=== PATIENT | male | born 1955 | race Caucasian/White ===

== ENCOUNTER 2016-10-27 07:05 | Inpatient (IN) | payer MEDICARE, OTHER ==
[2016-10-27] VITALS (46 sets, daily range): BP systolic 77–118; BP diastolic 47–70; PULSE 52–75; RESP 11–29; Ht 165.1 cm; Wt 62.1 kg
[~2016-10-27] VITALS: Ht 165.1 cm; Wt 62.1 kg
[~2016-10-27 07:05] MED LIST: ETOMIDATE 20 MG INJ ONE
[2016-10-27] MEDS ORDERED: SOD CHLORIDE 0.9% 500 ML IV STA (07:11)
[2016-10-27] MEDS ORDERED: PROPOFOL 100 ML IV STA (07:16)
[2016-10-27] MEDS ORDERED: ETOMIDATE 20 MG INJ IV STA (07:16)
[2016-10-27] MEDS ORDERED: ROCURONIUM 50 MG INJ IV STA (07:16)
--- NOTE | 2016-10-27 07:50 | ERA ---
ER Documentation Chief Complaint Date/Time DATE: 10/27/16 TIME: 07:46 Chief Complaint ALOC, UNRESPONSIVE TO PAIN FROM HOME HX LIVER FAILURE HPI 61-year-old male history of known cirrhosis, who gets most of his care at [facility] and is on the transplant list who presents with altered mental status. It appears he had a paracentesis yesterday, uncomplicated. He was normal around 10 PM yesterday evening. An design center consultant has been used with a conversation with his . She states that she found him this morning altered and obtunded. Upon arrival the patient is obtunded with a GCS of 6. The patient was intubated for airway protection. The patient's denies any recent fevers or illness, no falls or head trauma. Remainder of HPI is limited. ROS Obtunded patient Medications Home Meds Reported Medications Insulin Glargine* (Lantus*) 100 Unit/Ml Soln, 12 UNIT SC DAILY, #1 VIAL 10/27/16 Insulin Aspart* (Novolog Insulin Pen*) 100 Unit/Ml Soln, 4 UNIT SC AC BREAKFAST , EA 10/27/16 Midodrine* (Midodrine*) 10 Mg Tablet, 10 MG PO TID, TAB 10/27/16 Omeprazole* (Omeprazole*) 40 Mg Capsule.dr, 40 MG PO DAILY, #30 CAP 10/27/16 Ondansetron Hcl* (Zofran*) 4 Mg Tab, 4 MG PO Q6H Y for NAUSEA AND OR VOMITING, TAB 10/27/16 Rifaximin* (Xifaxan*) 550 Mg Tablet, 550 MG PO BID, TAB 10/27/16 Lactulose* (Lactulose*) 20 Gm/30 Ml Solution, 20 GM PO BID, ML 10/27/16 Tamsulosin Hcl* (Tamsulosin Hcl*) 0.4 Mg Cap.er.24h, 0.4 MG PO HS, CAP 10/27/16 Spironolactone* (Aldactone*) 100 Mg Tablet, 150 MG PO DAILY, #60 TAB 10/27/16 Furosemide* (Furosemide*) 40 Mg Tablet, 40 MG PO BID, TAB 10/27/16 Docusate Sodium* (Colace*) 100 Mg Capsule, 100 MG PO BID, #60 CAP 10/27/16 Allergies Allergies: Coded Allergies: morphine (Verified Allergy, Unknown, 10/27/16) PMhx/Soc History of cirrhosis Physical Exam Vitals Vital Signs Date Time Temp Pulse Resp B/P Pulse Ox O2 Delivery O2 Flow Rate FiO2 10/27/16 09:44 85 18 133/97 Mechanical Ventilator 10/27/16 08:55 73 18 117/63 Mechanical Ventilator 10/27/16 07:48 76 18 148/86 Mechanical Ventilator 10/27/16 07:38 97.5 81 15 177/89 100 Physical Exam General: Obtunded, GCS of 6, minimally responsive Head: Normocephalic, atraumatic. Eyes: Pupils minimally reactive, EOM intact ENT: Moist mucous membranes Neck: Supple, no lymphadenopathy Respiratory: Lungs clear bilaterally, no distress Cardiovascular: RRR, no murmurs, rubs, or gallops Abdominal: Soft, protuberant with fluid wave, lower abdominal wall ventral hernia that is easily reducible, no peritonitis, no pulsatile mass : Deferred MSK: No edema, no unilateral swelling, limited movement of extremities Neurologic: Obtunded, GCS of 6, minimally responsive Skin: No rash Psych: Unable to assess Result Diagram: 10/27/16 0735 10/27/16 0735 Results 24 hrs Laboratory Tests Test 10/27/16 07:11 10/27/16 07:35 Blood Gas Specimen Source Blood arterial Arterial Blood Date Drawn 10/27/2016 8:40:15 AM Arterial Blood pH (Temp corrected) 7.521 Arterial Blood pCO2 (Temp correct) 23.8mmhg Arterial Blood pO2 (Temp corrected) 409.7mmHG Arterial Blood HCO3 19.0mmol/L Arterial Blood Base Excess -2.6mmol/L Arterial Blood Oxygen Saturation 99.4mmHG Clint Test ACCEPTAB Arterial Blood Gas Puncture Site Left Radial Arterial Blood Carboxyhemoglobin 0.3% Arterial Blood Methemoglobin 0.3% Blood Gas A-a O2 Differential 279.5mmHg Oxyhemoglobin Percent 98.8% Total Hemoglobin 10.5g/dl Blood Gas Temperature 37.0C Blood Gas Respiration Rate 16.0 Blood Gas Actual Respiration Rate 20 Blood Gas Modality VENT - AC FiO2 100.0% Blood Gas Tidal Volume 450.0mL Blood Gas Low PEEP Setting 5.0cmH2O Blood Gas Notified Whom RT Blood Gas Notified Time 10/27/2016 8:49:57 AM White Blood Count 3.710^3/ul Red Blood Count 4.3010^6/ul Hemoglobin 10.6g/dl Hematocrit 33.1% Mean Corpuscular Volume 77.0fl Mean Corpuscular Hemoglobin 24.7pg Mean Corpuscular Hemoglobin Concent 32.0g/dl Red Cell Distribution Width 25.3% Platelet Count 7210^3/UL Mean Platelet Volume fl Neutrophils % 85.5% Lymphocytes % 7.0% Monocytes % 5.9% Eosinophils % 0.3% Basophils % 0.5% Nucleated Red Blood Cells % 0.0/100WBC Neutrophils # 3.210^3/ul Lymphocytes # 0.310^3/ul Monocytes # 0.210^3/ul Eosinophils # 0.010^3/ul Basophils # 0.010^3/ul Nucleated Red Blood Cells # 0.010^3/ul Prothrombin Time 18.0Sec Prothrombin Time Ratio 1.4 INR International Normalized Ratio 1.48 Activated Partial Thromboplast Time 32.3Sec Sodium Level 134mmol/L Potassium Level 4.6mmol/L Chloride Level 103mmol/L Carbon Dioxide Level 23mmol/L Anion Gap 13 Blood Urea Nitrogen 20mg/dl Creatinine 1.27mg/dl Glucose Level 285mg/dl Lactic Acid Level 3.8mmol/L Calcium Level 8.3mg/dl Total Bilirubin 0.9mg/dl Direct Bilirubin 0.00mg/dl Indirect Bilirubin 0.9mg/dl Aspartate Amino Transf (AST/SGOT) 33IU/L Alanine Aminotransferase (ALT/SGPT) 39IU/L Alkaline Phosphatase 212IU/L Ammonia 181umol/l Troponin I < 0.012ng/ml Total Protein 7.8g/dl Albumin 3.6g/dl Globulin 4.20g/dl Albumin/Globulin Ratio 0.85 Lipase 202U/L Free Thyroxine Index 2.53ug/ml Thyroxine (T4) 5.2ug/dl Triiodothyronine (T3) Uptake 48.6% Ethyl Alcohol Level < 10.0mg/dl Current Medications Medications (Trade) Dose Ordered Sig/Lisa Route PRN Reason Start Time Stop Time Status Last Admin Dose Admin Sodium Chloride (NS) 500 ml @ 500 mls/hr Q1H STAT IV 10/27/16 07:11 10/27/16 08:10 DC 10/27/16 07:28 Rocuronium [place] (Zemuron) 100 mg ONCE STAT IV 10/27/16 07:16 10/27/16 07:17 DC Etomidate 20 mg 20 mg ONCE STAT IV 10/27/16 07:16 10/27/16 07:17 DC Propofol (Diprivan) 100 ml @ 0 mls/hr ONCE STAT IV 10/27/16 07:16 10/27/16 07:17 DC 10/27/16 07:16 Lactulose (Enulose) 20 gm ONCE ONCE NGT 10/27/16 09:30 10/27/16 09:31 DC 10/27/16 09:35 Sodium Chloride 2170 ml 2,170 ml BOLUS OVER 2 HOURS STAT IV* 10/27/16 09:05 10/27/16 09:09 DC 10/27/16 09:32 Cefepime HCl 50 ml @ 100 mls/hr ONCE STAT IVPB 10/27/16 09:05 10/27/16 09:34 DC 10/27/16 09:35 Vancomycin HCl (Vancocin) 250 ml @ 125 mls/hr ONCE ONCE IVPB 10/27/16 10:00 10/27/16 11:59 Famotidine (Pepcid) 20 mg Q12 PO 10/27/16 11:00 Heparin Sodium (Porcine) (Heparin (5000 Units/0.5 ml)) 5,000 unit Q8 SC 10/27/16 11:00 Docusate Sodium (Colace) 100 mg BID PO 10/27/16 21:00 UNV Insulin Aspart (Novolog Insulin Pen) 4 unit AC BREAKFAST SC 10/28/16 07:00 UNV Lactulose (Enulose) 20 gm BID PO 10/27/16 21:00 10/27/16 21:00 DC Midodrine (Proamatine) 10 mg TID PO 10/27/16 13:00 UNV Ondansetron HCl (Zofran Tab) 4 mg Q6H PRN PO NAUSEA AND/OR VOMITING 10/27/16 10:00 UNV Rifaximin (Xifaxan) 550 mg BID PO 10/27/16 21:00 UNV Tamsulosin HCl (Flomax) 0.4 mg HS PO 10/27/16 21:00 UNV Lactulose (Enulose) 20 gm QID NGT 10/27/16 13:00 UNV Procedures/MDM EKG, MONITORS, & DIAGNOSTIC IMAGING: Chest x-ray: radiology report IMPRESSION: New endotracheal tube within the right mainstem bronchus. Retraction of 4 cm is recommended. Left lower lobe infiltrate and left pleural effusion. A call report was made and the findings discussed with Ned Galeana at 10/27/2016 8:42:58 AM. EKG: I reviewed and interpreted a 12-lead EKG. Rhythm: Normal sinus rhythm Ectopy: None Intervals: No abnormalities ST segments: No elevations or depressions T waves: No contiguous inversions CT brain: IMPRESSION: 1. No acute intracranial pathology identified. 2. Mild volume loss, with mild to moderate chronic small vessel ischemic changes. CT abdomen and pelvis: IMPRESSION: 1. Right mainstem bronchus intubation. Collapse of the visualized left lower lung. 2. Morphologic changes of cirrhosis. 3. Stigmata of portal hypertension with evidence of moderate splenomegaly, moderate abdominopelvic ascites, large caliber perisplenic, small-caliber upper abdominal varices and recanalized paraumbilical vein. 4. Fluid containing bilateral inguinal and periumbilical hernias. 5. Large right-sided hydrocele. 6. Mesenteric edema, mildly enlarged mesenteric and retroperitoneal lymph nodes. 7. Aortoiliac atherosclerosis. RPTAT: BB PROCEDURES: Intubation Note: Indication: Airway protection Consent: This was an emergent situation, implied consent was observed, did have a conversation with the patient's prior to intubation she states that he would want aggressive care RSI Medications: Etomidate 20 mg, Rocuronium 100 mg Tube size: 8 Secured at: 22 Procedure: Endotracheal intubation was performed. The patient was preoxygenated with supplemental oxygen, the room was set up with emergent airway equipment including [id number], suction, adjunct airways. Direct visualization of the cords was performed with direct laryngoscopy using a 4.0 Mac blade, insertion of the endotracheal tube through the cords was visualized by the mingler operator. Bilateral breath sounds were auscultated, color change was observed. The tube was then secured in a postintubation chest x-ray was ordered. The patient tolerated the procedure well there were no complications. LAB INTERPRETATION: Pancytopenia is noted, hyperglycemia without diabetic ketoacidosis, nonspecific lactic acidosis of 3.8, elevated ammonia of 181, negative troponin MEDICAL DECISION MAKING: The patient presents to the emergency room with acute altered mental status likely in the setting of hepatic encephalopathy. The patient has end-stage liver disease with stigmata of severe cirrhosis. He had a recent paracentesis yesterday but has a benign abdominal exam. I do not believe this is consistent with spontaneous bacterial peritonitis. Upon arrival the patient was obtunded with a GCS of 6 at best, he is oxygenating but I do not believe he is protecting his airway. Given that the patient will likely require multiple doses of lactulose I recommended airway protection and the patient's has agreed. The patient was intubated as documented above. Post sedation with propofol. Broad workup including blood cultures, lactic acid, CT imaging of the head and abdomen and pelvis were initiated. Blood cultures taken. No source of infection at this time, holding on antibiotics unless clinical scenario changes. NG tube to be placed for lactulose administration. ER COURSE: The patient's diagnostic imaging shows the endotracheal tube is in the right mainstem. Speaking with respiratory therapy it was noted that the patient's endotracheal tube slipped during imaging and the tube was deeper than 22 during initial intubation. The tube was retracted to 22 cm and bilateral breath sounds were auscultated. I confirmed this at bedside. The patient continues to be hemodynamically stable. His lactic acid is 3.8. No other Sirs criteria other than the low WBC count. No focal source and very low clinical concern for spontaneous bacterial peritonitis. The chest x-ray is concerning for possible pneumonia therefore empiric antibiotics were ordered. 30 cc/kg saline was provided. At this point given that the patient has hepatic encephalopathy with no fever I do not believe this is consistent with SBP and do not feel the patient requires an emergent diagnostic paracentesis. Empiric antibiotics would be appropriate and will cover SBP at this point. Given that the patient is hemodynamically stable with no evidence of severe sepsis or septic shock given that he does not meet criteria I do not believe he requires a central line. I will monitor the patient's blood pressure as well as lactic acid. He will be placed in the intensive care unit. I kept the patient and/or family informed of laboratory and diagnostic imaging results throughout the emergency room course. The family was updated multiple times, poor understanding and comprehension is noted. DISPOSITION PLAN: ICU admission for management of hepatic encephalopathy, respiratory failure CONSULTATION: Accepting care team and consultations: I discussed the current laboratory data, diagnostic imaging and emergency care provided. Admitting team: Dr. Gaines Admitting team indication: Insurance directed In the emergency department the patient does not meet SIRS criteria. This is not consistent with sepsis or severe sepsis. Fluid reassessment not performed because of this. Critical Care Note: Total time: 45 minutes Indication/Organ System Threat: Hepatic encephalopathy and altered mental status requiring intubation I spent the above amount of critical care time with the patient, not including billable procedures. This included chart review, consultations, repeat bedside evaluations, and titration of appropriate medications to prevent cardiopulmonary or respiratory collapse. Departure Diagnosis: Primary Impression: Pancytopenia Additional Impressions: Acute hepatic encephalopathy Acute respiratory failure Qualified Code: J96.00 - Acute respiratory failure, unspecified whether with hypoxia or hypercapnia Cirrhosis Qualified Code: K74.60 - Cirrhosis of liver with ascites, unspecified hepatic cirrhosis type Pneumonia Qualified Code: J18.9 - Pneumonia of left lung due to infectious organism, unspecified part of lung Lactic acidosis Condition: Critical NED RODRIGUEZ MD Oct 27, 2016 07:50
[2016-10-27 08:06] LABS: ADD SCAN DIFF NO
[2016-10-27 08:19] LABS: ABNORMAL IP MESSAGE 1; BASOPHILS % 0.5 % (0.0-2.0); EOSINOPHILS % 0.3 % (0.0-7.0); HEMATOCRIT 33.1 % (42.0-52.0); HEMOGLOBIN 10.6 g/dl (14.0-18.0); LYMPHOCYTES # 0.3 10^3/ul (0.8-2.9); MEAN CORPUSCULAR HEMOGLOBIN 24.7 pg (29.0-33.0); MONOCYTE # 0.2 10^3/ul (0.3-0.9); MONOCYTES % 5.9 % (0.0-11.0); NEUTROPHIL # 3.2 10^3/ul (1.6-7.5); NEUTROPHILS % 85.5 % (39.0-77.0); PLATELET COUNT 72 10^3/UL (140-415); RED CELL DISTRIBUTION WIDTH 25.3 % (11.5-14.5); WHITE BLOOD COUNT 3.7 10^3/ul (4.8-10.8)
--- NOTE | 2016-10-27 08:28 | RADRPT ---
PROCEDURE: CT brain without contrast CLINICAL INDICATION: Altered mental status TECHNIQUE: CT of the brain without contrast performed on a multidetector CT scanner, with multiplan ar reformats. One or more of the following dose reduction techniques were used: Automated exposure control, adjustment in mA and / or kV according to patient size, use of iterative reconstructive serge hnique. CTDIvol = 44 mGy; DLP = 630 mGy-cm. COMPARISON: None available FINDINGS: No acute intracranial hemorrhage is identified. No extra-axial fluid collection is seen. There is no mass effect. No midline shift is identified. Ventricles and sulci are mildly enlarged compatible with volume loss. There are mild to moderate areas of hypodensity in the periventricular - deep white matter which are nonspecific but suggestive of chronic small vessel ischemic changes. Barillas-white differentiation is preserved. Atherosclerotic calcifications of the internal carotid arteries are noted. Osseous structures are unremarkable. Mastoid air cells and imaged paranasal sinuses grossly clear. IMPRESSION: 1. No acute intracranial pathology identified. 2. Mild volume loss, with mild to moderate chronic small vessel ischemic changes. RPTAT: VV .Ivan Anna MD, MD Date Time Electronically viewed and signed by .Ivan Anna MD, on 10/27/2016 08:28 .O/
[2016-10-27 08:32] LABS: LACTIC ACID 3.8 mmol/L (0.5-2.2)
[2016-10-27 08:33] LABS: INR 1.48; PT RATIO 1.4
[2016-10-27 08:34] LABS: PARTIAL THROMBOPLASTIN TIME 32.3 Sec (25.0-35.0)
--- NOTE | 2016-10-27 08:38 | RADRPT ---
PROCEDURE: CT Abdomen and Pelvis without contrast. CLINICAL INDICATION: Altered mental status. Abdominal distension. TECHNIQUE: CT scan of the abdomen and pelvis without contrast was performed on a multidetector hig h-resolution CT scanner. The patient was scanned without intravenous contrast. Coronal and sagittal reformatted images were obtained from the axial source images. Images were reviewed on a high-resol [employer] PACS workstation. The total exam CTDI equals 12.49 mGy and the total exam DLP equals 923.12 mG y-cm. One or more of the following dose reduction techniques were used: Automated exposure control. Adjustment of the mA and/or kV according to patient size. Use of iterative reconstruction technique. COMPARISON: Chest x-ray 10/27/2016 FINDINGS: CT abdomen: The lung bases are remarkable for collapse of the visualized left lung. Endotracheal tube is identif ied in the right main bronchus. The heart size is normal, without pericardial thickening or effusio n. There is a small shrunken liver with surface nodularity in keeping with cirrhosis. There is moderat e splenomegaly. There is moderate abdominopelvic ascites. There are large caliber perisplenic varic es. Small caliber upper abdominal varices and recanalized paraumbilical veins are noted. The stomach is partially collapsed, but is grossly unremarkable. There is a small hiatal hernia. NG tube is in place with tip coiling in the stomach with tip projecting towards the fundus. The pancrea s as visualized is normal. The gallbladder is not identified. There is no evidence for biliary dila tation. The adrenal glands are symmetric and normal. The kidneys are symmetrically unremarkable as well. No renal calculus or obstructive uropathy or mass lesion is seen. The aorta is of normal caliber. Aortic vascular calcifications are present. There is no retroperit gutierrez lymphadenopathy. The terrell hepatis region is clear. There is fatty infiltration in the root o f the mesentery mesenteric edema. Multiple mildly enlarged retroperitoneal and mesenteric lymph nod es are present. There is periumbilical hernia containing fluid. CT pelvis: There are fluid and fat containing bilateral inguinal hernia. There is a large right-sided hydrocele . The small bowel loops situated within the pelvis are unremarkable. The pelvic organs are normal. The pelvic sidewalls and inguinal regions are clear. Scattered diverticula are seen in the left c olon without evidence of acute diverticulitis. No mass, lymphadenopathy, or free fluid is seen. No acute inflammation is seen. The surrounding osseous structures are remarkable for degenerative spon dylosis of the spine. No osteolytic or osteoblastic lesion is detected. There is grade 1 anterolist hesis of L5 on S1 related to bilateral pars defects. IMPRESSION: 1. Right mainstem bronchus intubation. Collapse of the visualized left lower lung. 2. Morphologic changes of cirrhosis. 3. Stigmata of portal hypertension with evidence of moderate splenomegaly, moderate abdominopelvic ascites, large caliber perisplenic, small-caliber upper abdominal varices and recanalized paraumbili arturo vein. 4. Fluid containing bilateral inguinal and periumbilical hernias. 5. Large right-sided hydrocele. 6. Mesenteric edema, mildly enlarged mesenteric and retroperitoneal lymph nodes. 7. Aortoiliac atherosclerosis. RPTAT: BB .Tamie Burroughs MD, MD Date Time Electronically viewed and signed by .Tamie Burroughs MD, on 10/27/2016 08:38 .O/
[2016-10-27 08:40] LABS: ALANINE AMINOTRANSFERASE 39 IU/L (13-69); ALBUMIN 3.6 g/dl (3.3-4.9); ALBUMIN/GLOBULIN RATIO 0.85; ALKALINE PHOSPHATASE 212 IU/L (42-121); ANION GAP 13 (8-16); ASPARTATE AMINO TRANSFERASE 33 IU/L (15-46); BILIRUBIN,INDIRECT 0.9 mg/dl (0-1.1); BILIRUBIN,TOTAL 0.9 mg/dl (0.2-1.3); BLOOD UREA NITROGEN 20 mg/dl (7-20); CALCIUM 8.3 mg/dl (8.4-10.2); CARBON DIOXIDE 23 mmol/L (21-31); CHLORIDE 103 mmol/L (97-110); CREATININE 1.27 mg/dl (0.61-1.24); GLUCOSE 285 mg/dl (70-220); POTASSIUM 4.6 mmol/L (3.5-5.1); SODIUM 134 mmol/L (135-144); TOTAL PROTEIN 7.8 g/dl (6.1-8.1)
--- NOTE | 2016-10-27 08:44 | RADRPT ---
PROCEDURE: XR Chest. CLINICAL INDICATION: Status post intubation TECHNIQUE: Single portable view of the chest was obtained COMPARISON: none FINDINGS: There is a new endotracheal tube within the right mainstem bronchus. There is mild cardiomegaly. Thoracic aorta is calcified. There is a left lower lobe infiltrate and left pleural effusion. RPTAT: AA IMPRESSION: New endotracheal tube within the right mainstem bronchus. Retraction of 4 cm is recommended. Left lower lobe infiltrate and left pleural effusion. A call report was made and the findings discussed with Ned Galeana at 10/27/2016 8:42:58 AM . .Jay Jacobson MD, MD Date Time Electronically viewed and signed by .Jay Jacobson MD, MD on 10/27/2016 08:44 .S/
[2016-10-27 08:50] LABS: AADO2 Arterial 279.5 mmHg (7.0-24.0); Allen Test ACCEPTAB; Arterial Base Excess -2.6 mmol/L (-3.0-3); Arterial COHb 0.3 % (0.0-3.0); Arterial Fraction of Oxyhgb 98.8 % (93.0-99.0); Arterial MetHb 0.3 % (0.0-1.5); Arterial Total Hemglobin 10.5 g/dl (12.0-18.0); MODE VENT - AC
[2016-10-27 08:54] LABS: ETHANOL < 10.0 mg/dl
[2016-10-27] MEDS ORDERED: CEFEPIME 2GM/50 ML (PMX) 50 ML IVPB STA (09:05)
[2016-10-27] MEDS ORDERED: SODIUM CHLORIDE 0.9% 1L BAG IV* STA (09:05)
[2016-10-27 09:08] LABS: TROPONIN-I < 0.012 ng/ml (0.00-0.12)
[2016-10-27 09:16] LABS: T3 UPTAKE 48.6 % (23.5-40.5)
[2016-10-27] MEDS ORDERED: DOCU-144 PO (09:20)
[2016-10-27] MEDS ORDERED: FURO40TA4 PO (09:21)
[2016-10-27] MEDS ORDERED: SPIR100T PO (09:22)
[2016-10-27] MEDS ORDERED: TAMS0.4C2 PO (09:24)
[2016-10-27] MEDS ORDERED: LACT20SO2 PO (09:24)
[2016-10-27] MEDS ORDERED: RIFA550T4 PO (09:28)
[2016-10-27] MEDS ORDERED: ONDA-43 PO (09:29)
[2016-10-27] MEDS ORDERED: LACTULOSE 30ML CUP NGT ONE (09:30)
[2016-10-27] MEDS ORDERED: OMEP40CA6 PO (09:30)
[2016-10-27] MEDS ORDERED: MIDO10TA PO (09:37)
[2016-10-27] MEDS ORDERED: NOVO3I SC (09:37)
--- NOTE | 2016-10-27 09:42 | HP ---
Date/Time of Note Date/Time of Note DATE: 10/27/16 TIME: 09:42 Assessment/Plan VTE Prophylaxis VTE Prophylaxis Intervention: SCD's Assessment/Plan Assessment/Plan 61 yo M with cirrhosis/ESLD on transplant list at [facility] cb recurrent episodes of HE and symptomatic ascites requiring LVPs admitted for altered mental status, most likely an exacerbation of pt's HE brought about by LVP done 48 hours ago, but given pt's underlying medical conditions, prudent to also evaluate for infectious processes. Consider dieretic induced HE as well. HE can also be precipitated by GIB however hgb 10s PLAN -Management of HE with increased frequency of lactulose dosing; cont home rifaximin -Unclear what pt's baseline Cr is. Will hold diuretics pending outside records -obtain OSH labs to review hgb -defer additional antimicrobials at this time. ANGY sent to [facility] for outside records to get pt's baseline Cr -UA/urine culture, blood cultures, diagnostic para to eval for infectious etios repeat CXR in AM. Unclear if initial imaging represents atelectasis v infiltrate cont home midodrine, flomax dispo: to floor when mental status improves enough to allow for extubation HPI/ROS Admit Date/Time Admit Date/Time Hx of Present Illness 61 yo M with known pmhx cirrhosis ESLD on transplant list at [facility] cb recurrent ascites requiring LVPs, recurrent HE presented this morning with altered mental status. Per discussion with patient's family, pt had a planned LVP done at [facility] on Wednesday for symptomatic ascities. Unclear how much fluid was removed. Wednesday pt noted to be "disoriented" per family. Family had wanted to bring pt to the hospital but he refused. However confusion progressed and family eventually brought pt in. Pt quite somnolent in the ED and was intubated for airway protection. Of note, family states pt's HE has been getting worse in recent mos. PMH/Family/Social Past Medical History unable to obtain PMHx/SurgHx/FamHx/SocHx/ROS from patient as he is intubated and sedated meds list as per EMR Social History Smoking Status: Unknown if ever smoked Exam/Review of Systems Vital Signs Vitals Vital Signs Date Time Temp Pulse Resp B/P Pulse Ox O2 Delivery O2 Flow Rate FiO2 10/27/16 08:55 73 18 117/63 Mechanical Ventilator 10/27/16 07:38 97.5 100 Exam Exam intubated and sedated, laying in bed +scattered ecchymoses over limbs no mrg lungs clear abd soft trace LE edema no rashes unable to assess for asterixis Labs Result Diagram: 10/27/16 0735 10/27/16 0735 Medications Medications Current Medications Vancomycin HCl (Vancocin) 250 ml @ 125 mls/hr ONCE ONCE IVPB ; Start 10/27/16 at 10:00; Stop 10/27/16 at 11:59 Famotidine (Pepcid) 20 mg Q12 PO ; Start 10/27/16 at 11:00 Heparin Sodium (Porcine) (Heparin (5000 Units/0.5 ml)) 5,000 unit Q8 SC ; Start 10/27/16 at 11:00 Procedures Procedures Cr 1.3 abn TFTs noted Ammonia level elevated LA level noted HUMAIRA CERVANTES MD Oct 27, 2016 09:42
[2016-10-27] MEDS ORDERED: LANT3I SC (09:47)
[2016-10-27] MEDS ORDERED: VANCOMYCIN 1 GM (PMX) 250 ML IVPB ONE (10:00)
[2016-10-27] MEDS ORDERED: ONDANSETRON 4 MG TAB PO PRN (10:00)
[2016-10-27] MEDS ORDERED: FAMOTIDINE 20 MG TAB PO SCH (11:00)
[2016-10-27] MEDS ORDERED: HEPARIN 5,000 UNIT/0.5 ML VIAL SC SCH (11:00)
[2016-10-27] MEDS: PROPOFOL 100 ML IV SCH ×2 (11:15→14:35)
[2016-10-27] MEDS ORDERED: INSULIN ASPART [NOVOLOG] 3 ML PEN SC SCH ×3 (12:00→17:35)
[2016-10-27] MEDS ORDERED: DOCUSATE SODIUM 100 MG CAP PO SCH (12:00)
[2016-10-27] MEDS ORDERED: RIFAXIMIN 550 MG TAB PO SCH (12:00)
[2016-10-27] MEDS: MIDODRINE 5 MG TAB PO SCH ×2 (12:03→20:34)
[2016-10-27] MEDS: LACTULOSE 30ML CUP NGT SCH ×4 (12:03→21:01)
[2016-10-27] MEDS ORDERED: NORepinephrine 8MG/250 ML (PMX 250 ML IV SCH (13:00)
[2016-10-27] MEDS ORDERED: SOD CHLORIDE 0.9% 1,000 ML IV SCH (13:00)
[2016-10-27] MEDS: INSULIN ASPART [NOVOLOG] 3 ML PEN SC SCH ×3 (13:13→21:10)
[2016-10-27] MEDS ORDERED: DEXTROSE 50% 50 ML SYRINGE IV PRN ×2 (13:30)
[2016-10-27] MEDS ORDERED: GLUCOSE GEL 15 GRAM TUBE PO PRN ×2 (13:30)
[2016-10-27] MEDS ORDERED: GLUCAGON 1 MG INJ IM PRN (13:30)
[2016-10-27] MEDS ORDERED: GLUCOSE GEL 15 GRAM TUBE BUCCAL PRN (13:30)
--- NOTE | 2016-10-27 13:48 | CONS ---
DATE OF ADMISSION: 10/27/2016 DATE OF CONSULTATION: 10/27/2016 TYPE OF CONSULTATION: Urology REQUESTING PHYSICIAN: Demar Hilton MD Dear Dr. Hilton: Thank you for asking me to see this patient in urological consultation. HISTORY OF PRESENT ILLNESS: This is a 61-year-old male who had a paracentesis at [facility] yest erday and was sent home. This morning, his noticed him to be mentally altered and they brought him to the emergency room here and he was found to be obtunded and the patient was intubated for ai rway protection. Attempts to insert a Simmons catheter for him in the emergency room and in the [facility] care unit were not successful, as they were having difficulty even finding his penis because of a very large inguinoscrotal hernia. Therefore, a urological consultation was requested. All the i nformation that I obtained was from reviewing the emergency room note that his medical record. The patient is known to have a history of cirrhosis, gets his care for that at [facility]. He is on a tra nsplant list for liver transplant. The patient also does have a history of diabetes. MEDICATIONS: He has been on medications that include: 1. Insulin. 2. Midodrine. 3. Omeprazole. 4. Zofran. 5. Rifaximin. 6. Lactulose. 7. Tamsulosin. 8. Spironolactone. 9. Lasix. 10. Colace. ALLERGIES: HE IS ALLERGIC TO MORPHINE. SOCIAL HISTORY: No history of whether he does smoke is available, but apparently he has a history o f drinking and consequently has the cirrhosis and the ascites. MEDICATIONS: The patient is presently on: 1. Lactulose. 2. Tamsulosin. 3. Rifaximin. 4. Zofran p.r.n. 5. Midodrine. 6. Insulin. 7. Colace. 8. Heparin subcutaneous. 9. Pepcid. 10. Vancomycin. 11. Cefepime. 12. Diprivan. 13. Zemuron. PHYSICAL EXAMINATION: GENERAL: Reveals an elderly male. He weighs 70 kg, he is 65 inches tall. VITAL SIGNS: His temperature is 97.5, pulse is 58, respirations 16, blood pressure 133/97. HEENT: The patient is intubated. NECK: Supple. There is no cervical adenopathy. ABDOMEN: He does have ascites and also he does have an umbilical hernia protruding out of the abdom en and a large right inguinoscrotal hernia. The penis is buried in the hernia. EXTREMITIES: Reveal no edema. RECTAL: Prostate is not enlarged and it is soft. DIAGNOSTIC DATA: The patient had a CT scan of the abdomen and pelvis, and that was reported as righ t main stem bronchus intubation, collapse of the visualized left lower lung. Morphologic changes of cirrhosis, stigmata of portal hypertension with evidence of moderate splenomegaly, moderate abdomin opelvic ascites, large perisplenic small caliber upper abdominal varices and recanalized paraumbilic al vein. Fluid containing bilateral inguinal and periumbilical hernias, large right-sided hydrocele , mesenteric edema, mildly enlarged mesenteric and retroperitoneal lymph nodes, aortoiliac atheroscl erosis. LABORATORY DATA: His CBC shows a white count of 3.7, hemoglobin 10.6, hematocrit 33.1, platelet cou nt 72,000. Sodium 134, potassium 4.6, chloride 103, CO2 of 23, BUN 20, creatinine 1.27. PT 18.0, I NR 1.48. IMPRESSION: 1. Large right inguinoscrotal hernia and the penis is buried into the hernia. 2. The patient does have ascites and cirrhosis. PLAN: Insert a Simmons catheter. The genital area was then prepped and draped in the usual sterile m shiv. The penis was pulled out of the hernia. The head of the penis was cleaned with Betadine an d then the urethra was lubricated with K-Y jelly. Then, I inserted a 16-Gu[place] Simmons catheter that went into the bladder and clear yellow urine was drained out. Simmons catheter was connected to a pankaj inage bag and the patient tolerated the procedure well. Dictated By: GABBIE GOODEN/AURORA Conf#: [id number] DID#: [id number]
[2016-10-27] MEDS ORDERED: PROPOFOL 100 ML IV SCH (16:30)
[2016-10-27] MEDS ORDERED: FENTAnyl (DRIP) 1000 mcg/100mL 100 ML IV SCH (16:30)
[2016-10-27] MEDS: SOD CHLORIDE 0.9% 1,000 ML IV SCH (16:30)
--- NOTE | 2016-10-27 17:36 | CONS ---
DATE OF ADMISSION: 10/27/2016 DATE OF CONSULTATION: 10/27/2016 TYPE OF CONSULTATION: Pulmonary REASON FOR CONSULTATION: Ventilator management. Thank you, Dr. Gaines, for this consultation. HISTORY OF PRESENT ILLNESS: This is a 61-year-old gentleman with history of end-stage liver disease , apparently on the liver transplant list at [facility], recently admitted there for increasing ascites re quiring paracentesis, following which he became more unresponsive and presented here with significan t altered mental status, requiring emergent intubation, mechanical ventilation, and possible initiat ion of vasopressor support. No head injury, no fall, no loss of consciousness. No new medications. PAST MEDICAL HISTORY: Cirrhosis with end-stage liver disease, renal insufficiency and recurrent enc ephalopathy. MEDICATIONS: Per chart. ALLERGIES: NONE. SOCIAL HISTORY: Nonsmoker, no alcohol, no history of drug use. FAMILY HISTORY: Noncontributory. REVIEW OF SYSTEMS: A 12-point review of systems was negative other than that mentioned above. PHYSICAL EXAMINATION: GENERAL: Chronically ill appearing gentleman, orally intubated. HEENT: Dry mucous membranes. Pupils equal and reactive to light. CARDIAC: S1, S2, no added sounds or murmurs. CHEST: Diminished air entry bilaterally. ABDOMEN: Soft, nontender. No guarding or rebound. EXTREMITIES: No cyanosis, clubbing, or edema. NEUROLOGIC: Generalized weakness. LABORATORY DATA: White count 3.7, hemoglobin 10.6, platelets of 72. BUN 20, creatinine 1.27. Lact ic acid 4.0. ABG: pH 7.5, pCO2 of 23, PaO2 of 409. Chest x-ray was reviewed, shows endotracheal tube in right main stem bronchus. IMPRESSION: 1. Acute encephalopathy, likely secondary to underlying end-stage liver disease given significantly elevated ammonia level. 2. History of cirrhosis. 3. Recurrent altered mental status. 4. Mild hyponatremia. PLAN: 1. Fluid resuscitation. 2. Hold off on paracentesis. 3. Consider broad-spectrum antibiotics for possible SBP. 4. DVT and GI prophylaxis. 5. Further adjustment of endotracheal tube given right main stem intubation. Dictated By: DEVAN CLAIRE/AURORA Conf#: [id number] DID#: [id number]
[2016-10-27] MEDS ORDERED: ACCU-CHEK XX SCH (19:35)
[2016-10-27] MEDS ORDERED: LACTULOSE 30ML CUP PO SCH (21:00)
[2016-10-27] MEDS: DOCUSATE SODIUM 10 MG/ML (10ML CUP) NGT SCH (21:02)
[2016-10-27] MEDS: TAMSULOSIN (SR) 0.4 MG CAP PO SCH (21:02)
[2016-10-27] MEDS: FAMOTIDINE 20 MG TAB NGT SCH (21:02)
[2016-10-27] MEDS: RIFAXIMIN 550 MG TAB NGT SCH (21:06)
--- NOTE | 2016-10-27 22:15 | RADRPT ---
PROCEDURE: Portable chest x-ray. CLINICAL INDICATION: Pneumonia, CHF, intubation. TECHNIQUE: Portable AP view of the chest. COMPARISON: 10/27/2016. FINDINGS: An endotracheal tube terminates approximately 1.8 cm above the chiqui. A nasogastric tube terminates in the stomach . There are low lung volumes, limiting evaluation of the pulmonary vessels. The car diac silhouette is not enlarged. There are aortic calcifications. No pleural effusion is seen. The re is no pneumothorax. IMPRESSION: 1. Endotracheal tube tip approximately 1.8 cm above the chiqui. 2. Nasogastric tube tip in the stomach. 3. Low lung volumes. 4. Aortic atherosclerosis. RPTAT: HTAR .Joey Ramos MD, Date Time Electronically viewed and signed by .Joey Ramos MD, MD on 10/27/2016 22:15 .R/
[2016-10-28] VITALS (34 sets, daily range): BP systolic 90–118; BP diastolic 55–68; PULSE 74–95; RESP 13–26
[2016-10-28] MEDS: INSULIN ASPART [NOVOLOG] 3 ML PEN SC SCH ×6 (00:46→20:59)
[2016-10-28] MEDS ORDERED: ACCU-CHEK XX SCH (02:00)
[2016-10-28] MEDS: PROPOFOL 100 ML IV SCH ×2 (02:31→15:48)
[2016-10-28] MEDS: SOD CHLORIDE 0.9% 1,000 ML IV SCH ×3 (02:32→19:10)
[2016-10-28 06:58] LABS: ADD SCAN DIFF NO
[2016-10-28 07:45] LABS: ABNORMAL IP MESSAGE 1; BASOPHILS % 0.7 % (0.0-2.0); EOSINOPHILS # 0.1 10^3/ul (0.0-0.5); EOSINOPHILS % 2.5 % (0.0-7.0); HEMATOCRIT 26.4 % (42.0-52.0); HEMOGLOBIN 8.4 g/dl (14.0-18.0); LYMPHOCYTES # 0.3 10^3/ul (0.8-2.9); LYMPHOCYTES % 5.3 % (15.0-51.0); MEAN CORPUSCULAR HEMOGLOBIN 25.1 pg (29.0-33.0); MEAN CORPUSCULAR HGB CONC 31.8 g/dl (32.0-37.0); MONOCYTE # 0.6 10^3/ul (0.3-0.9); MONOCYTES % 10.5 % (0.0-11.0); NEUTROPHIL # 4.5 10^3/ul (1.6-7.5); NEUTROPHILS % 80.6 % (39.0-77.0); PLATELET COUNT 54 10^3/UL (140-415); RED BLOOD COUNT 3.34 10^6/ul (4.70-6.10); RED CELL DISTRIBUTION WIDTH 25.8 % (11.5-14.5); WHITE BLOOD COUNT 5.6 10^3/ul (4.8-10.8)
[2016-10-28 08:01] LABS: CALCIUM 7.7 mg/dl (8.4-10.2); CREATININE 1.13 mg/dl (0.61-1.24); POTASSIUM 4.3 mmol/L (3.5-5.1)
[2016-10-28] MEDS: DOCUSATE SODIUM 10 MG/ML (10ML CUP) NGT SCH ×2 (08:23→22:10)
[2016-10-28] MEDS: LACTULOSE 30ML CUP NGT SCH ×4 (08:23→21:01)
[2016-10-28] MEDS: RIFAXIMIN 550 MG TAB NGT SCH ×2 (08:23→21:01)
[2016-10-28] MEDS: MIDODRINE 5 MG TAB NGT SCH ×3 (08:24→20:20)
[2016-10-28] MEDS: FAMOTIDINE 20 MG TAB NGT SCH ×2 (08:24→21:01)
[2016-10-28 08:37] LABS: AADO2 Arterial 97.5 mmHg (7.0-24.0); Allen Test ACCEPTAB; Arterial Base Excess -4.9 mmol/L (-3.0-3); Arterial COHb 0.3 % (0.0-3.0); Arterial Fraction of Oxyhgb 97.8 % (93.0-99.0); Arterial MetHb 0.6 % (0.0-1.5); Arterial Total Hemglobin 9.7 g/dl (12.0-18.0); MODE VENT - AC
--- NOTE | 2016-10-28 09:54 | CONS ---
Date/Time of Note Date/Time of Note DATE: 10/28/16 TIME: 09:50 Assessment/Plan Assessment/Plan Additional Assessment/Plan Ventilator setting; AC of 10, tidal volume 400, PEEP of 5, 40% FiO2. Assessment recommendations; 1. Patient admitted with alcoholic cirrhosis with encephalopathy. There has been significant decline in serum ammonia level. 2. Recurrent ascites, last paracentesis done at [facility] [place] just a few days ago. Currently there is no evidence of any significant ascites fluid. 3. Thrombocytopenia. 4. Currently no evidence of any infective process either. Continue current treatment. Continue lactulose. Weaning from ventilator with depend upon adequate mental status recovery. Consultation Date/Type/Reason Admit Date/Time Oct 27, 2016 at 09:23 Initial Consult Date Type of Consultation: Pulmonary/critical care 24 HR Interval Summary Free Text/Dictation Patient condition remains unchanged. Patient has remained hemodynamically stable. Requiring propofol drip for mild sedation because of patient biting on endotracheal tube and occasional agitation. General exam; elderly male, orally intubated, sedated. Currently in no distress. Exam/Review of Systems Vital Signs Vitals Vital Signs Date Time Temp Pulse Resp B/P Pulse Ox O2 Delivery O2 Flow Rate FiO2 10/28/16 08:00 86 17 101/65 100 Mechanical Ventilator 10/28/16 07:00 99.0 10/28/16 05:10 40 Intake and Output 10/27/16 10/27/16 10/28/16 15:00 23:00 07:00 Intake Total 124.2 ml 2482.8 ml 569.1 ml Output Total 440 ml 165 ml 100 ml Balance -315.8 ml 2317.8 ml 469.1 ml Exam HEENT examination; supple neck, no JVD. No lymphadenopathy. Midline trachea. No thyromegaly. Dentition is fair. Orally intubated. Patient is nonicteric. No neck masses. Chest examination; clear to auscultation. S1-S2 audible, no murmurs. Regular rhythm. Abdomen exam is; soft, protuberant. There is a very large umbilical hernia as well as massive scrotal edema present. Bowel sounds audible. Extremity examination; no peripheral edema. Pulses 1+ bilaterally. BENCH MOLDER examination; patient is sedated. Results Result Diagram: 10/28/16 0610 10/28/16 0610 Results 24 hrs Laboratory Tests Test 10/27/16 10:04 10/27/16 12:43 10/27/16 13:08 10/27/16 18:07 Lactic Acid Level 3.9 H 4.0 H Bedside Glucose 285 H 203 Test 10/27/16 21:09 10/28/16 00:44 10/28/16 06:01 10/28/16 06:10 Bedside Glucose 148 180 Lactic Acid Level 2.5 H White Blood Count 5.6 # Red Blood Count 3.34 #L Hemoglobin 8.4 #L Hematocrit 26.4 #L Mean Corpuscular Volume 79.0 L Mean Corpuscular Hemoglobin 25.1 L Mean Corpuscular Hemoglobin Concent 31.8 L Red Cell Distribution Width 25.8 H Platelet Count 54 #L Mean Platelet Volume Neutrophils % 80.6 H Lymphocytes % 5.3 L Monocytes % 10.5 Eosinophils % 2.5 Basophils % 0.7 Nucleated Red Blood Cells % 0.0 Neutrophils # 4.5 Lymphocytes # 0.3 L Monocytes # 0.6 Eosinophils # 0.1 Basophils # 0.0 Nucleated Red Blood Cells # 0.0 Sodium Level 135 Potassium Level 4.3 Chloride Level 110 Carbon Dioxide Level 20 L Anion Gap 9 Blood Urea Nitrogen 22 H Creatinine 1.13 Glucose Level 152 # Calcium Level 7.7 L Ammonia 104 H Test 10/28/16 06:12 10/28/16 07:00 10/28/16 08:46 Bedside Glucose 162 167 Blood Gas Specimen Source Blood arterial Arterial Blood Date Drawn 10/28/2016 7:20:28 AM Arterial Blood pH (Temp corrected) 7.495 H Arterial Blood pCO2 (Temp correct) 22.6 L Arterial Blood pO2 (Temp corrected) 161.7 H Arterial Blood HCO3 17.0 L Arterial Blood Base Excess -4.9 L Arterial Blood Oxygen Saturation 98.7 H Clint Test ACCEPTAB Arterial Blood Gas Puncture Site Left Radial Arterial Blood Carboxyhemoglobin 0.3 Arterial Blood Methemoglobin 0.6 Blood Gas A-a O2 Differential 97.5 H Oxyhemoglobin Percent 97.8 Total Hemoglobin 9.7 L Blood Gas Temperature 37.0 Blood Gas Respiration Rate 10.0 Blood Gas Actual Respiration Rate 32 Blood Gas Modality VENT - AC FiO2 40.0 Blood Gas Tidal Volume 400.0 Blood Gas Low PEEP Setting 5.0 Blood Gas Notified Whom JLD Blood Gas Notified Time 10/28/2016 7:52:10 AM Medications Medications Current Medications Ondansetron HCl (Zofran Tab) 4 mg Q6H PRN PO NAUSEA AND/OR VOMITING; Start at 10:00 Tamsulosin HCl (Flomax) 0.4 mg HS PO Last administered on 10/27/16 21:02; Admin Dose 0.4 MG; Start 10/27/16 at 21:00 Lactulose 20 gm 20 gm QID NGT Last administered on 10/28/16 08:23; Admin Dose 20 GM; Start 10/27/16 at 10:00 Propofol (Diprivan) 100 ml @ 2.1 mls/hr Q12H IV Last administered on 02:31; Admin Dose 6.3 MLS/HR; Start 10/27/16 at 11:30 Insulin Aspart NOVOLOG *MILD* ALGORI... Q4 SC Last administered on 10/28/16 08 :50; Admin Dose 1 UNIT; Start 10/27/16 at 14:00 Norepinephrine/ Dextrose (Levophed/D5W) 500 ml @ 0 mls/hr TITRATE IV ; Start at 19:00 Miscellaneous Information 1 ea NOTE XX ; Start 10/27/16 at 13:30 Glucose (Glutose) 15 gm Q15M PRN PO DECREASED GLUCOSE; Start 10/27/16 at 13:30 Glucose (Glutose) 22.5 gm Q15M PRN PO DECREASED GLUCOSE; Start 10/27/16 at 13: 30 Dextrose (D50w Syringe) 25 ml Q15M PRN IV DECREASED GLUCOSE; Start 10/27/16 at 13:30 Dextrose (D50w Syringe) 50 ml Q15M PRN IV DECREASED GLUCOSE; Start 10/27/16 at 13:30 Glucagon (Glucagen) 1 mg Q15M PRN IM DECREASED GLUCOSE; Start 10/27/16 at 13:30 Glucose 15 gm 15 gm Q15M PRN BUCCAL DECREASED GLUCOSE; Start 10/27/16 at 13:30 Sodium Chloride (NS) 1,000 ml @ 75 mls/hr [id number] IV Last administered on 10/28 02:32; Admin Dose 75 MLS/HR; Start 10/27/16 at 16:30 Famotidine (Pepcid) 20 mg Q12 NGT Last administered on 10/28/16 08:24; Admin Dose 20 MG; Start 10/27/16 at 21:00 Rifaximin (Xifaxan) 550 mg BID NGT Last administered on 10/28/16 08:23; Admin Dose 550 MG; Start 10/27/16 at 21:30 Docusate Sodium (Colace Liquid Cup) 100 mg BID NGT Last administered on 08:23; Admin Dose 100 MG; Start 10/27/16 at 21:00 Midodrine (Proamatine) 10 mg TID@08,14,20 NGT Last administered on 10/28/16 08 :24; Admin Dose 10 MG; Start 10/28/16 at 08:00 CHRISTEN STEWART Oct 28, 2016 09:54
--- NOTE | 2016-10-28 12:44 | PN ---
DATE: 10/28/2016 SUBJECTIVE: The patient is on a respirator and has an indwelling Simmons catheter, has a very large r ight inguinoscrotal hernia. The penis was buried in the hernia itself. However, the patient has no t been able to complain of any pain at the present. OBJECTIVE: VITAL SIGNS: Temperature of 99.0, pulse is 75, blood pressure 94/59, respirations 17. ABDOMEN: Shows he does have an umbilical hernia and a large right inguinoscrotal hernia. Simmons cat heter is in place and draining clear urine. LABORATORY DATA: CBC shows a white count of 5.6, hemoglobin 8.4, hematocrit 26.4. BUN is 22, creat inine 1.13, sodium 135, potassium 4.3, chloride 110, CO2 of 20. The urine culture is pending. IMPRESSION: Large right inguinoscrotal hernia and difficulty inserting a catheter because of the pe nis being buried in the hernia area. I did put the catheter on him yesterday and the catheter now i s draining well and the urine is yellow clear. PLAN: To keep the Simmons catheter in until it is not needed for medical purposes, monitoring his uri ne output, and then we could take the catheter out. Dictated By: GABBIE GOODEN/AURORA Conf#: [id number] DID#: [id number]
--- NOTE | 2016-10-28 14:11 | RADRPT ---
PROCEDURE: XR Chest. CLINICAL INDICATION: Respiratory distress. TECHNIQUE: Chest x-ray, single view. COMPARISON: 10/27/2016. FINDINGS: The cardiac silhouette is slightly magnified and unchanged in size and configuration. Aortic arch a therosclerotic calcification is present. The endotracheal tube terminates within the mid trachea. The enteric tube terminates within the body of the stomach. Low lung volumes are observed. Mild ba silar atelectatic changes persist. There is no dominant focal pulmonary parenchymal opacification. Osseous structures appear demineralized. The visualized upper abdomen is unremarkable. IMPRESSION: Hypoinflation with mild basilar atelectatic changes. RPTAT: HLST .Lidia Simon MD, Date Time Electronically viewed and signed by .Lidia Simon MD, on 10/28/2016 14:10 .T/
--- NOTE | 2016-10-28 17:32 | PN ---
Date/Time of Note Date/Time of Note DATE: 10/28/16 TIME: 17:24 Assessment/Plan VTE Prophylaxis VTE Prophylaxis Intervention: SCD's Lines/Catheters IV Catheter Type (from Nrs): Peripheral IV Urinary Cath still in place: Yes Reason Cath still needed: urinary retention Assessment/Plan Assessment/Plan 1. acute resp failure due to decompensated liver cirrhosis and AMS 2. AMS due to acute hepatic encephalopathy 3. ESLD with recurrent ascites requiring frequent paracentesis 4. Sepsis syndrome as per criteria 5.hypertension Plan: IV abx, Levophed BP still labile remains intubated on ventilator , pulmonary following I received a call from [facility] but no call back number provided to my office, I tried calling back on [phone] but it was [employer] relay operator number and she dose not who called us SCD For DVT prophylaxis , no heparin/lovenox for DVT prophylaxis due to liver cirrhosis and thrombocytopenia Exam/Review of Systems Vital Signs Vitals Vital Signs Date Time Temp Pulse Resp B/P Pulse Ox O2 Delivery O2 Flow Rate FiO2 10/28/16 17:00 78 17 113/68 100 Mechanical Ventilator 10/28/16 12:00 98.8 10/28/16 08:00 40 Intake and Output 10/27/16 10/27/16 10/28/16 15:00 23:00 07:00 Intake Total 124.2 ml 2482.8 ml 644.1 ml Output Total 440 ml 165 ml 100 ml Balance -315.8 ml 2317.8 ml 544.1 ml Exam intubated and sedated, laying in bed +scattered ecchymoses over limbs no mrg lungs clear abd soft trace LE edema no rashes unable to assess for asterixis Results Result Diagram: 10/28/16 0610 10/28/16 0610 Results 24 hrs Laboratory Tests Test 10/27/16 18:07 10/27/16 21:09 10/28/16 00:44 10/28/16 06:01 Bedside Glucose 203 148 180 Lactic Acid Level 2.5 H Test 10/28/16 06:10 10/28/16 06:12 10/28/16 07:00 10/28/16 08:46 White Blood Count 5.6 # Red Blood Count 3.34 #L Hemoglobin 8.4 #L Hematocrit 26.4 #L Mean Corpuscular Volume 79.0 L Mean Corpuscular Hemoglobin 25.1 L Mean Corpuscular Hemoglobin Concent 31.8 L Red Cell Distribution Width 25.8 H Platelet Count 54 #L Mean Platelet Volume Neutrophils % 80.6 H Lymphocytes % 5.3 L Monocytes % 10.5 Eosinophils % 2.5 Basophils % 0.7 Nucleated Red Blood Cells % 0.0 Neutrophils # 4.5 Lymphocytes # 0.3 L Monocytes # 0.6 Eosinophils # 0.1 Basophils # 0.0 Nucleated Red Blood Cells # 0.0 Sodium Level 135 Potassium Level 4.3 Chloride Level 110 Carbon Dioxide Level 20 L Anion Gap 9 Blood Urea Nitrogen 22 H Creatinine 1.13 Glucose Level 152 # Calcium Level 7.7 L Ammonia 104 H Bedside Glucose 162 167 Blood Gas Specimen Source Blood arterial Arterial Blood Date Drawn 10/28/2016 7:20:28 AM Arterial Blood pH (Temp corrected) 7.495 H Arterial Blood pCO2 (Temp correct) 22.6 L Arterial Blood pO2 (Temp corrected) 161.7 H Arterial Blood HCO3 17.0 L Arterial Blood Base Excess -4.9 L Arterial Blood Oxygen Saturation 98.7 H Clint Test ACCEPTAB Arterial Blood Gas Puncture Site Left Radial Arterial Blood Carboxyhemoglobin 0.3 Arterial Blood Methemoglobin 0.6 Blood Gas A-a O2 Differential 97.5 H Oxyhemoglobin Percent 97.8 Total Hemoglobin 9.7 L Blood Gas Temperature 37.0 Blood Gas Respiration Rate 10.0 Blood Gas Actual Respiration Rate 32 Blood Gas Modality VENT - AC FiO2 40.0 Blood Gas Tidal Volume 400.0 Blood Gas Low PEEP Setting 5.0 Blood Gas Notified Whom JLD Blood Gas Notified Time 10/28/2016 7:52:10 AM Test 10/28/16 12:38 10/28/16 16:55 Bedside Glucose 145 132 Medications Medications Current Medications Ondansetron HCl (Zofran Tab) 4 mg Q6H PRN PO NAUSEA AND/OR VOMITING; Start at 10:00 Tamsulosin HCl (Flomax) 0.4 mg HS PO Last administered on 10/27/16 21:02; Admin Dose 0.4 MG; Start 10/27/16 at 21:00 Lactulose 20 gm 20 gm QID NGT Last administered on 10/28/16 16:56; Admin Dose 20 GM; Start 10/27/16 at 10:00 Propofol (Diprivan) 100 ml @ 2.1 mls/hr Q12H IV Last administered on 15:48; Admin Dose 6.3 MLS/HR; Start 10/27/16 at 11:30 Insulin Aspart NOVOLOG *MILD* ALGORI... Q4 SC Last administered on 10/28/16 12 :40; Admin Dose 1 UNIT; Start 10/27/16 at 14:00 Norepinephrine/ Dextrose (Levophed/D5W) 500 ml @ 0 mls/hr TITRATE IV ; Start at 19:00 Miscellaneous Information 1 ea NOTE XX ; Start 10/27/16 at 13:30 Glucose (Glutose) 15 gm Q15M PRN PO DECREASED GLUCOSE; Start 10/27/16 at 13:30 Glucose (Glutose) 22.5 gm Q15M PRN PO DECREASED GLUCOSE; Start 10/27/16 at 13: 30 Dextrose (D50w Syringe) 25 ml Q15M PRN IV DECREASED GLUCOSE; Start 10/27/16 at 13:30 Dextrose (D50w Syringe) 50 ml Q15M PRN IV DECREASED GLUCOSE; Start 10/27/16 at 13:30 Glucagon (Glucagen) 1 mg Q15M PRN IM DECREASED GLUCOSE; Start 10/27/16 at 13:30 Glucose 15 gm 15 gm Q15M PRN BUCCAL DECREASED GLUCOSE; Start 10/27/16 at 13:30 Sodium Chloride (NS) 1,000 ml @ 75 mls/hr [id number] IV Last administered on 10/28 15:48; Admin Dose 75 MLS/HR; Start 10/27/16 at 16:30 Famotidine (Pepcid) 20 mg Q12 NGT Last administered on 10/28/16 08:24; Admin Dose 20 MG; Start 10/27/16 at 21:00 Rifaximin (Xifaxan) 550 mg BID NGT Last administered on 10/28/16 08:23; Admin Dose 550 MG; Start 10/27/16 at 21:30 Docusate Sodium (Colace Liquid Cup) 100 mg BID NGT Last administered on 08:23; Admin Dose 100 MG; Start 10/27/16 at 21:00 Midodrine (Proamatine) 10 mg TID@08,14,20 NGT Last administered on 10/28/16t 13 :47; Admin Dose 10 MG; Start 10/28/16 at 08:00 LORRIE MENDOZA MD Oct 28, 2016 17:32
[2016-10-28] MEDS: TAMSULOSIN (SR) 0.4 MG CAP PO SCH (21:01)
[2016-10-29] VITALS (34 sets, daily range): BP systolic 92–131; BP diastolic 55–111; PULSE 70–111; RESP 13–27
[2016-10-29] MEDS: PROPOFOL 100 ML IV SCH ×2 (00:58→11:26)
[2016-10-29] MEDS: INSULIN ASPART [NOVOLOG] 3 ML PEN SC SCH ×6 (01:01→20:53)
[2016-10-29] MEDS: SOD CHLORIDE 0.9% 1,000 ML IV SCH ×2 (06:17→19:49)
[2016-10-29 07:26] LABS: ADD SCAN DIFF NO
[2016-10-29 07:33] LABS: ABNORMAL IP MESSAGE 1; BASOPHILS % 0.5 % (0.0-2.0); EOSINOPHILS # 0.1 10^3/ul (0.0-0.5); EOSINOPHILS % 2.8 % (0.0-7.0); HEMATOCRIT 28.1 % (42.0-52.0); HEMOGLOBIN 8.9 g/dl (14.0-18.0); LYMPHOCYTES # 0.3 10^3/ul (0.8-2.9); LYMPHOCYTES % 7.1 % (15.0-51.0); MEAN CORPUSCULAR HEMOGLOBIN 25.1 pg (29.0-33.0); MEAN CORPUSCULAR HGB CONC 31.7 g/dl (32.0-37.0); MEAN CORPUSCULAR VOLUME 79.2 fl (82.0-101.0); MONOCYTE # 0.6 10^3/ul (0.3-0.9); MONOCYTES % 13.1 % (0.0-11.0); NEUTROPHIL # 3.3 10^3/ul (1.6-7.5); NEUTROPHILS % 76.3 % (39.0-77.0); PLATELET COUNT 63 10^3/UL (140-415); RED BLOOD COUNT 3.55 10^6/ul (4.70-6.10); RED CELL DISTRIBUTION WIDTH 26.2 % (11.5-14.5); WHITE BLOOD COUNT 4.3 10^3/ul (4.8-10.8)
[2016-10-29 07:45] LABS: INR 1.52; PROTIME 18.4 Sec (12.2-14.2); PT RATIO 1.4
[2016-10-29 07:46] LABS: PARTIAL THROMBOPLASTIN TIME 34.9 Sec (25.0-35.0)
[2016-10-29 07:51] LABS: ALBUMIN 2.6 g/dl (3.3-4.9); ALBUMIN/GLOBULIN RATIO 0.72; CALCIUM 7.7 mg/dl (8.4-10.2); CREATININE 1.13 mg/dl (0.61-1.24); POTASSIUM 4.5 mmol/L (3.5-5.1); TOTAL PROTEIN 6.2 g/dl (6.1-8.1)
[2016-10-29 08:46] LABS: AADO2 Arterial 55.7 mmHg (7.0-24.0); Arterial Base Excess -6.1 mmol/L (-3.0-3); Arterial COHb 0.3 % (0.0-3.0); Arterial Fraction of Oxyhgb 97.8 % (93.0-99.0); Arterial HCO3 16.3 mmol/L (22.0-26.0); Arterial MetHb 0.3 % (0.0-1.5); Arterial Total Hemglobin 9.9 g/dl (12.0-18.0); MODE VENT - AC
[2016-10-29] MEDS: LACTULOSE 30ML CUP NGT SCH ×4 (09:17→20:41)
[2016-10-29] MEDS: RIFAXIMIN 550 MG TAB NGT SCH ×2 (09:17→20:40)
[2016-10-29] MEDS: FAMOTIDINE 20 MG TAB NGT SCH ×2 (09:17→20:40)
[2016-10-29] MEDS: DOCUSATE SODIUM 10 MG/ML (10ML CUP) NGT SCH ×2 (09:18→20:40)
[2016-10-29] MEDS: MIDODRINE 5 MG TAB NGT SCH ×3 (09:24→20:44)
--- NOTE | 2016-10-29 10:31 | CONS ---
Date/Time of Note Date/Time of Note DATE: 10/29/16 TIME: 10:26 Assessment/Plan Assessment/Plan Additional Assessment/Plan Chest x-ray was reviewed from yesterday afternoon which is essentially clear. Current ventilator settings are assist control of 10, tidal volume 400, PEEP of 5, 30% FiO2. Propofol at 30 mics per kilogram per minute. Assessment and recommendations; 1. Patient admitted with alcoholic encephalopathy due to underlying cirrhosis. 2. History of multiple paracentesis. Currently there is no evidence of any significant ascites fluid. 3. Thrombocytopenia. Without any overt bleeding. 4. Anemia. 5. Currently no evidence of any infective process. Patient off antibiotics. Discontinue propofol. Once the patient is off sedation he will be evaluated for possible weaning from ventilator. Meanwhile continue current supportive care. 35 minutes of critical care time was spent evaluating the patient. Consultation Date/Type/Reason Admit Date/Time Oct 27, 2016 at 09:23 Type of Consultation: Pulmonary/critical care 24 HR Interval Summary Free Text/Dictation Patient's condition remains critical. Still requiring full ventilator support. Patient however has remained hemodynamically stable. No untoward events reported. General exam; elderly male, orally intubated, sedated. Currently in no distress. Exam/Review of Systems Vital Signs Vitals Vital Signs Date Time Temp Pulse Resp B/P Pulse Ox O2 Delivery O2 Flow Rate FiO2 10/29/16 09:05 88 18 100 30 10/29/16 08:00 98.3 119/63 Mechanical Ventilator Intake and Output 10/28/16 10/28/16 10/29/16 15:00 23:00 07:00 Intake Total 656.7 ml 746.7 ml 652.5 ml Output Total 85 ml 145 ml 140 ml Balance 571.7 ml 601.7 ml 512.5 ml Exam HEENT exam; supple neck, no JVD. No lymphadenopathy. Midline trachea. No thyromegaly. Patient is orally intubated. Patient is a fair dentition. Has bilateral cataracts. Pupils are small bilaterally. Next Chest examination; clear to auscultation. S1-S2 audible, no murmurs. Regular rhythm. Abdomen examination; soft, no organomegaly. Bowel sounds audible. There is a very large umbilical hernia. There is scrotal edema present. However no fluid thrill could be appreciated. Extremity examination; no peripheral edema. Patient has a multiple ecchymosis involving all 4 extremities. 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 Results Result Diagram: 10/29/16 0710 10/29/16 0710 Results 24 hrs Laboratory Tests Test 10/28/16 12:38 10/28/16 16:55 10/28/16 20:58 10/29/16 00:55 Bedside Glucose 145 132 149 177 Test 10/29/16 05:36 10/29/16 07:00 10/29/16 07:10 10/29/16 08:27 Bedside Glucose 178 165 Blood Gas Specimen Source Blood arterial Arterial Blood Date Drawn 10/29/2016 8:02:10 AM Arterial Blood pH (Temp corrected) 7.463 H Arterial Blood pCO2 (Temp correct) 23.3 L Arterial Blood pO2 (Temp corrected) 130.8 H Arterial Blood HCO3 16.3 L Arterial Blood Base Excess -6.1 L Arterial Blood Oxygen Saturation 98.4 H Clint Test N/A Arterial Blood Gas Puncture Site Right Brachial Arterial Blood Carboxyhemoglobin 0.3 Arterial Blood Methemoglobin 0.3 Blood Gas A-a O2 Differential 55.7 H Oxyhemoglobin Percent 97.8 Total Hemoglobin 9.9 L Blood Gas Temperature 37.0 Blood Gas Respiration Rate 20.0 Blood Gas Actual Respiration Rate 24 Blood Gas Modality VENT - AC FiO2 30.0 Blood Gas Tidal Volume 400.0 Blood Gas Low PEEP Setting 5.0 Blood Gas Notified Whom JLD Blood Gas Notified Time 10/29/2016 8:46:07 AM White Blood Count 4.3 #L Red Blood Count 3.55 L Hemoglobin 8.9 L Hematocrit 28.1 L Mean Corpuscular Volume 79.2 L Mean Corpuscular Hemoglobin 25.1 L Mean Corpuscular Hemoglobin Concent 31.7 L Red Cell Distribution Width 26.2 H Platelet Count 63 L Mean Platelet Volume Neutrophils % 76.3 Lymphocytes % 7.1 L Monocytes % 13.1 H Eosinophils % 2.8 Basophils % 0.5 Nucleated Red Blood Cells % 0.0 Neutrophils # 3.3 Lymphocytes # 0.3 L Monocytes # 0.6 Eosinophils # 0.1 Basophils # 0.0 Nucleated Red Blood Cells # 0.0 Prothrombin Time 18.4 H Prothrombin Time Ratio 1.4 INR International Normalized Ratio 1.52 Activated Partial Thromboplast Time 34.9 Sodium Level 136 Potassium Level 4.5 Chloride Level 111 H Carbon Dioxide Level 19 L Anion Gap 11 Blood Urea Nitrogen 28 H Creatinine 1.13 Glucose Level 167 Calcium Level 7.7 L Total Bilirubin 1.0 Direct Bilirubin 0.00 Indirect Bilirubin 1.0 Aspartate Amino Transf (AST/SGOT) 27 Alanine Aminotransferase (ALT/SGPT) 34 Alkaline Phosphatase 144 H Total Protein 6.2 # Albumin 2.6 #L Globulin 3.60 H Albumin/Globulin Ratio 0.72 Medications Medications Current Medications Ondansetron HCl (Zofran Tab) 4 mg Q6H PRN PO NAUSEA AND/OR VOMITING; Start at 10:00 Tamsulosin HCl (Flomax) 0.4 mg HS PO Last administered on 10/28/16 21:01; Admin Dose 0.4 MG; Start 10/27/16 at 21:00 Lactulose 20 gm 20 gm QID NGT Last administered on 10/29/16 09:17; Admin Dose 20 GM; Start 10/27/16 at 10:00 Propofol (Diprivan) 100 ml @ 2.1 mls/hr Q12H IV Last administered on 00:58; Admin Dose 6.3 MLS/HR; Start 10/27/16 at 11:30 Insulin Aspart NOVOLOG *MILD* ALGORI... Q4 SC Last administered on 10/29/16 08 :30; Admin Dose 1 UNIT; Start 10/27/16 at 14:00 Norepinephrine/ Dextrose (Levophed/D5W) 500 ml @ 0 mls/hr TITRATE IV ; Start at 19:00 Miscellaneous Information 1 ea NOTE XX ; Start 10/27/16 at 13:30 Glucose (Glutose) 15 gm Q15M PRN PO DECREASED GLUCOSE; Start 10/27/16 at 13:30 Glucose (Glutose) 22.5 gm Q15M PRN PO DECREASED GLUCOSE; Start 10/27/16 at 13: 30 Dextrose (D50w Syringe) 25 ml Q15M PRN IV DECREASED GLUCOSE; Start 10/27/16 at 13:30 Dextrose (D50w Syringe) 50 ml Q15M PRN IV DECREASED GLUCOSE; Start 10/27/16 at 13:30 Glucagon (Glucagen) 1 mg Q15M PRN IM DECREASED GLUCOSE; Start 10/27/16 at 13:30 Glucose 15 gm 15 gm Q15M PRN BUCCAL DECREASED GLUCOSE; Start 10/27/16 at 13:30 Sodium Chloride (NS) 1,000 ml @ 75 mls/hr [id number] IV Last administered on 10/29 06:17; Admin Dose 75 MLS/HR; Start 10/27/16 at 16:30 Famotidine (Pepcid) 20 mg Q12 NGT Last administered on 10/29/16 09:17; Admin Dose 20 MG; Start 10/27/16 at 21:00 Rifaximin (Xifaxan) 550 mg BID NGT Last administered on 10/29/16 09:17; Admin Dose 550 MG; Start 10/27/16 at 21:30 Docusate Sodium (Colace Liquid Cup) 100 mg BID NGT Last administered on 09:18; Admin Dose 100 MG; Start 10/27/16 at 21:00 Midodrine (Proamatine) 10 mg TID@08,14,20 NGT Last administered on 10/29/16 09 :24; Admin Dose 10 MG; Start 10/28/16 at 08:00 CHRISTEN STEWART Oct 29, 2016 10:31
--- NOTE | 2016-10-29 11:21 | RADRPT ---
PROCEDURE: XR Chest. CLINICAL INDICATION: Ascites. TECHNIQUE: Single frontal view of the chest was obtained. COMPARISON: None FINDINGS: The soft tissues are normal an endotracheal tube is in place with its tip 1 cm from the chiqui. A c ould be withdrawn 3.8 cm for better positioning near T3-4.. The bony elements are normal. The hear t, cardiomediastinal silhouette and hilar structures are normal. The pulmonary vasculature is normal . There is a suboptimal inspiration. There are vascular calcifications in the aortic arch. There i s compressive atelectasis in the bases of the lungs. The costophrenic angles are normal. IMPRESSION: 1. The endotracheal tube should be withdrawn about 3.8 cm for better positioning near T3-4. It curr ently rests 1 cm superior to the chiqui. 2. An NG tube is well positioned distal to the GE junction. 3. Suboptimal inspiratory effort with compressive atelectasis in the bases of the lungs. RPTAT:AAJJ Physician Christy Date Time Electronically viewed and signed by Physician Christy on 10/29/2016 11:21 DANAE/
[2016-10-29] MEDS ORDERED: PROPOFOL 100 ML ONE (15:14)
--- NOTE | 2016-10-29 16:40 | PN ---
Date/Time of Note Date/Time of Note DATE: 10/29/16 TIME: 16:39 Assessment/Plan VTE Prophylaxis VTE Prophylaxis Intervention: SCD's Lines/Catheters IV Catheter Type (from Nrs): Peripheral IV Urinary Cath still in place: Yes Reason Cath still needed: urinary retention Assessment/Plan Assessment/Plan 1. acute resp failure due to decompensated liver cirrhosis and AMS 2. AMS due to acute hepatic encephalopathy 3. ESLD with recurrent ascites requiring frequent paracentesis 4. 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 operator number and she dose not who called us SCD For DVT prophylaxis , no heparin/lovenox for DVT prophylaxis due to liver cirrhosis and thrombocytopenia Subjective 24 Hr Interval Summary Free Text/Dictation no acute events, Exam/Review of Systems Vital Signs Vitals Vital Signs Date Time Temp Pulse Resp B/P Pulse Ox O2 Delivery O2 Flow Rate FiO2 10/29/16 16:00 98.6 72 17 105/55 99 Mechanical Ventilator 10/29/16 15:15 30 Intake and Output 10/28/16 10/28/16 10/29/16 15:00 23:00 07:00 Intake Total 656.7 ml 746.7 ml 652.5 ml Output Total 85 ml 145 ml 155 ml Balance 571.7 ml 601.7 ml 497.5 ml Exam intubated and sedated, laying in bed +scattered ecchymoses over limbs no mrg lungs clear abd soft trace LE edema no rashes Results Result Diagram: 10/29/16 0710 10/29/16 0710 Results 24 hrs Laboratory Tests Test 10/28/16 16:55 10/28/16 20:58 10/29/16 00:55 10/29/16 05:36 Bedside Glucose 132 149 177 178 Test 10/29/16 07:00 10/29/16 07:10 10/29/16 08:27 10/29/16 13:34 Blood Gas Specimen Source Blood arterial Arterial Blood Date Drawn 10/29/2016 8:02:10 AM Arterial Blood pH (Temp corrected) 7.463 H Arterial Blood pCO2 (Temp correct) 23.3 L Arterial Blood pO2 (Temp corrected) 130.8 H Arterial Blood HCO3 16.3 L Arterial Blood Base Excess -6.1 L Arterial Blood Oxygen Saturation 98.4 H Clint Test N/A Arterial Blood Gas Puncture Site Right Brachial Arterial Blood Carboxyhemoglobin 0.3 Arterial Blood Methemoglobin 0.3 Blood Gas A-a O2 Differential 55.7 H Oxyhemoglobin Percent 97.8 Total Hemoglobin 9.9 L Blood Gas Temperature 37.0 Blood Gas Respiration Rate 20.0 Blood Gas Actual Respiration Rate 24 Blood Gas Modality VENT - AC FiO2 30.0 Blood Gas Tidal Volume 400.0 Blood Gas Low PEEP Setting 5.0 Blood Gas Notified Whom JLD Blood Gas Notified Time 10/29/2016 8:46:07 AM White Blood Count 4.3 #L Red Blood Count 3.55 L Hemoglobin 8.9 L Hematocrit 28.1 L Mean Corpuscular Volume 79.2 L Mean Corpuscular Hemoglobin 25.1 L Mean Corpuscular Hemoglobin Concent 31.7 L Red Cell Distribution Width 26.2 H Platelet Count 63 L Mean Platelet Volume Neutrophils % 76.3 Lymphocytes % 7.1 L Monocytes % 13.1 H Eosinophils % 2.8 Basophils % 0.5 Nucleated Red Blood Cells % 0.0 Neutrophils # 3.3 Lymphocytes # 0.3 L Monocytes # 0.6 Eosinophils # 0.1 Basophils # 0.0 Nucleated Red Blood Cells # 0.0 Prothrombin Time 18.4 H Prothrombin Time Ratio 1.4 INR International Normalized Ratio 1.52 Activated Partial Thromboplast Time 34.9 Sodium Level 136 Potassium Level 4.5 Chloride Level 111 H Carbon Dioxide Level 19 L Anion Gap 11 Blood Urea Nitrogen 28 H Creatinine 1.13 Glucose Level 167 Calcium Level 7.7 L Total Bilirubin 1.0 Direct Bilirubin 0.00 Indirect Bilirubin 1.0 Aspartate Amino Transf (AST/SGOT) 27 Alanine Aminotransferase (ALT/SGPT) 34 Alkaline Phosphatase 144 H Total Protein 6.2 # Albumin 2.6 #L Globulin 3.60 H Albumin/Globulin Ratio 0.72 Bedside Glucose 165 192 Medications Medications Current Medications Ondansetron HCl (Zofran Tab) 4 mg Q6H PRN PO NAUSEA AND/OR VOMITING; Start at 10:00 Tamsulosin HCl (Flomax) 0.4 mg HS PO Last administered on 10/28/16t 21:01; Admin Dose 0.4 MG; Start 10/27/16 at 21:00 Lactulose (Enulose) 20 gm QID NGT Last administered on 10/29/16 13:00; Admin Dose 20 GM; Start 10/27/16 at 10:00 Insulin Aspart NOVOLOG *MILD* ALGORI... Q4 SC Last administered on 10/29/16 13 :36; Admin Dose 2 UNIT; Start 10/27/16 at 14:00 Norepinephrine/ Dextrose (Levophed/D5W) 500 ml @ 0 mls/hr TITRATE IV ; Start at 19:00 Miscellaneous Information 1 ea NOTE XX ; Start 10/27/16 at 13:30 Glucose (Glutose) 15 gm Q15M PRN PO DECREASED GLUCOSE; Start 10/27/16 at 13:30 Glucose (Glutose) 22.5 gm Q15M PRN PO DECREASED GLUCOSE; Start 10/27/16 at 13: 30 Dextrose (D50w Syringe) 25 ml Q15M PRN IV DECREASED GLUCOSE; Start 10/27/16 at 13:30 Dextrose (D50w Syringe) 50 ml Q15M PRN IV DECREASED GLUCOSE; Start 10/27/16 at 13:30 Glucagon (Glucagen) 1 mg Q15M PRN IM DECREASED GLUCOSE; Start 10/27/16 at 13:30 Glucose 15 gm 15 gm Q15M PRN BUCCAL DECREASED GLUCOSE; Start 10/27/16 at 13:30 Sodium Chloride (NS) 1,000 ml @ 75 mls/hr [id number] IV Last administered on 10/29 06:17; Admin Dose 75 MLS/HR; Start 10/27/16 at 16:30 Famotidine (Pepcid) 20 mg Q12 NGT Last administered on 10/29/16 09:17; Admin Dose 20 MG; Start 10/27/16 at 21:00 Rifaximin (Xifaxan) 550 mg BID NGT Last administered on 10/29/16 09:17; Admin Dose 550 MG; Start 10/27/16 at 21:30 Docusate Sodium (Colace Liquid Cup) 100 mg BID NGT Last administered on 09:18; Admin Dose 100 MG; Start 10/27/16 at 21:00 Midodrine 10 mg 10 mg TID@08,14,20 NGT Last administered on 10/29/16 14:57; Admin Dose 10 MG; Start 10/28/16 at 08:00 Propofol (Diprivan) 100 ml @ 2.1 mls/hr Q12H PRN IV AGITATION/ANXIETY Last administered on 10/29/16 15:18; Admin Dose 4.2 MLS/HR; Start 10/29/16 at 23:30 LORRIE MENDOZA MD Oct 29, 2016 16:40
[2016-10-29] MEDS: TAMSULOSIN (SR) 0.4 MG CAP PO SCH (20:40)
[2016-10-29] MEDS ORDERED: PROPOFOL 100 ML IV PRN (23:30)
[2016-10-30] VITALS (30 sets, daily range): BP systolic 87–105; BP diastolic 50–66; PULSE 61–81; RESP 10–22
[2016-10-30] MEDS: INSULIN ASPART [NOVOLOG] 3 ML PEN SC SCH ×6 (01:00→21:09)
[2016-10-30 07:12] LABS: ADD SCAN DIFF NO
[2016-10-30 07:25] LABS: ABNORMAL IP MESSAGE 1; BASOPHILS % 0.5 % (0.0-2.0); EOSINOPHILS # 0.2 10^3/ul (0.0-0.5); EOSINOPHILS % 4.5 % (0.0-7.0); HEMOGLOBIN 8.4 g/dl (14.0-18.0); LYMPHOCYTES # 0.4 10^3/ul (0.8-2.9); LYMPHOCYTES % 9.4 % (15.0-51.0); MEAN CORPUSCULAR HEMOGLOBIN 25.2 pg (29.0-33.0); MEAN CORPUSCULAR HGB CONC 31.1 g/dl (32.0-37.0); MEAN CORPUSCULAR VOLUME 81.1 fl (82.0-101.0); MONOCYTE # 0.5 10^3/ul (0.3-0.9); MONOCYTES % 13.1 % (0.0-11.0); NEUTROPHIL # 2.9 10^3/ul (1.6-7.5); NEUTROPHILS % 72.3 % (39.0-77.0); RED BLOOD COUNT 3.33 10^6/ul (4.70-6.10); RED CELL DISTRIBUTION WIDTH 26.4 % (11.5-14.5)
[2016-10-30 07:34] LABS: PLATELET COUNT 53 10^3/UL (140-415)
[2016-10-30 07:35] LABS: INR 1.51; PROTIME 18.3 Sec (12.2-14.2); PT RATIO 1.4
[2016-10-30 07:36] LABS: PARTIAL THROMBOPLASTIN TIME 36.3 Sec (25.0-35.0)
[2016-10-30 07:50] LABS: AADO2 Arterial 65.8 mmHg (7.0-24.0); Allen Test ACCEPTAB; Arterial COHb 0.3 % (0.0-3.0); Arterial Fraction of Oxyhgb 97.4 % (93.0-99.0); Arterial HCO3 17.7 mmol/L (22.0-26.0); Arterial MetHb 0.4 % (0.0-1.5); MODE VENT - AC
[2016-10-30 08:11] LABS: ALBUMIN 2.4 g/dl (3.3-4.9); ALBUMIN/GLOBULIN RATIO 0.64; BILIRUBIN,INDIRECT 0.8 mg/dl (0-1.1); BILIRUBIN,TOTAL 0.8 mg/dl (0.2-1.3); CALCIUM 7.8 mg/dl (8.4-10.2); POTASSIUM 4.3 mmol/L (3.5-5.1); TOTAL PROTEIN 6.1 g/dl (6.1-8.1)
[2016-10-30] MEDS: LACTULOSE 30ML CUP NGT SCH ×4 (08:43→20:35)
[2016-10-30] MEDS: RIFAXIMIN 550 MG TAB NGT SCH ×2 (08:43→20:35)
[2016-10-30] MEDS: DOCUSATE SODIUM 10 MG/ML (10ML CUP) NGT SCH ×2 (08:43→20:35)
[2016-10-30] MEDS: FAMOTIDINE 20 MG TAB NGT SCH ×2 (08:43→20:35)
[2016-10-30] MEDS: MIDODRINE 5 MG TAB NGT SCH ×3 (08:45→20:38)
--- NOTE | 2016-10-30 10:10 | CONS ---
Date/Time of Note Date/Time of Note DATE: 10/30/16 TIME: 10:07 Assessment/Plan Assessment/Plan Additional Assessment/Plan Patient currently on CPAP, 30% FiO2 pressure support of 10. Assessment recommendations; 1. Patient admitted for respiratory failure due to hepatic encephalopathy due to history of alcohol abuse. There has been marked overall improvement in clinical status. With marked improvement in patient's mentation as well. Currently exhibiting adequate weaning parameters on CPAP mode. 2. Thrombocytopenia. 3. History of BPH. 4. History of frequent abdominal paracentesis. 5. Recurrent ascites. 6. Anemia. Continue CPAP mode. Schedule ultrasound-guided paracentesis. Patient likely will be extubated after paracentesis. Meanwhile continue current supportive care. Overall prognosis remains poor. Consultation Date/Type/Reason Admit Date/Time Oct 27, 2016 at 09:23 Type of Consultation: Pulmonary/critical care 24 HR Interval Summary Free Text/Dictation Patient condition has improved markedly. He is completely awake alert. Has been on CPAP mode for the last hour and half. Patient exhibiting adequate weaning parameters. Denies any shortness of breath, chest pain, abdominal pain , nausea vomiting. General exam; elderly male, on ventilator via endotracheal tube, orally intubated. Currently in no distress. Awake and alert. Exam/Review of Systems Vital Signs Vitals Vital Signs Date Time Temp Pulse Resp B/P Pulse Ox O2 Delivery O2 Flow Rate FiO2 10/30/16 08:00 99.0 74 13 98/63 100 Mechanical Ventilator 10/30/16 05:47 30 Intake and Output 10/29/16 10/29/16 10/30/16 15:00 23:00 07:00 Intake Total 831.0 ml 696.96 ml 552.72 ml Output Total 120 ml 185 ml 150 ml Balance 711.0 ml 511.96 ml 402.72 ml Exam HEENT examination; supple neck, no JVD. No lymphadenopathy midline trachea. No thyromegaly. Patient has a multiple carious teeth. Pupils are midsize and reactive to light. Orally intubated. Chest examination; diminished but clear vessel bilaterally. S1-S2 audible, no murmurs. Regular rhythm. Abdomen examination; soft, protuberant. With a positive fluid thrill. There is a very large unlikely hernia and scrotal edema present. Bowel sounds audible. No organomegaly felt. Extremity examination; no peripheral edema. The patient has a multiple ecchymosis involving all 4 extremities. No clubbing. 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 Results Result Diagram: 10/30/16 0538 10/30/16 0538 Results 24 hrs Laboratory Tests Test 10/29/16 13:34 10/29/16 18:08 10/29/16 20:51 10/30/16 01:17 Bedside Glucose 192 185 151 137 Test 10/30/16 05:00 10/30/16 05:22 10/30/16 05:38 10/30/16 08:50 Blood Gas Specimen Source Blood arterial Arterial Blood Date Drawn 10/30/2016 5:05:06 AM Arterial Blood pH (Temp corrected) 7.457 H Arterial Blood pCO2 (Temp correct) 25.6 L Arterial Blood pO2 (Temp corrected) 118.0 H Arterial Blood HCO3 17.7 L Arterial Blood Base Excess -5.0 L Arterial Blood Oxygen Saturation 98.1 H Clint Test ACCEPTAB Arterial Blood Gas Puncture Site Left Radial Arterial Blood Carboxyhemoglobin 0.3 Arterial Blood Methemoglobin 0.4 Blood Gas A-a O2 Differential 65.8 H Oxyhemoglobin Percent 97.4 Total Hemoglobin 10.0 L Blood Gas Temperature 37.0 Blood Gas Respiration Rate 10.0 Blood Gas Actual Respiration Rate 17 Blood Gas Modality VENT - AC FiO2 30.0 Blood Gas Tidal Volume 400.0 Blood Gas Low PEEP Setting 5.0 Blood Gas Notified Whom K B Blood Gas Notified Time 10/30/2016 5:26:24 AM Bedside Glucose 141 148 White Blood Count 4.0 L Red Blood Count 3.33 L Hemoglobin 8.4 L Hematocrit 27.0 L Mean Corpuscular Volume 81.1 L Mean Corpuscular Hemoglobin 25.2 L Mean Corpuscular Hemoglobin Concent 31.1 L Red Cell Distribution Width 26.4 H Platelet Count 53 L Mean Platelet Volume Neutrophils % 72.3 Lymphocytes % 9.4 L Monocytes % 13.1 H Eosinophils % 4.5 Basophils % 0.5 Nucleated Red Blood Cells % 0.0 Neutrophils # 2.9 Lymphocytes # 0.4 L Monocytes # 0.5 Eosinophils # 0.2 Basophils # 0.0 Nucleated Red Blood Cells # 0.0 Prothrombin Time 18.3 H Prothrombin Time Ratio 1.4 INR International Normalized Ratio 1.51 Activated Partial Thromboplast Time 36.3 H Sodium Level 138 Potassium Level 4.3 Chloride Level 113 H Carbon Dioxide Level 19 L Anion Gap 10 Blood Urea Nitrogen 28 H Creatinine 1.00 Glucose Level 135 Calcium Level 7.8 L Total Bilirubin 0.8 Direct Bilirubin 0.00 Indirect Bilirubin 0.8 Aspartate Amino Transf (AST/SGOT) 27 Alanine Aminotransferase (ALT/SGPT) 37 Alkaline Phosphatase 135 H Total Protein 6.1 Albumin 2.4 L Globulin 3.70 H Albumin/Globulin Ratio 0.64 Test 10/30/16 09:10 Ammonia 85 H Medications Medications Current Medications Ondansetron HCl (Zofran Tab) 4 mg Q6H PRN PO NAUSEA AND/OR VOMITING; Start at 10:00 Tamsulosin HCl (Flomax) 0.4 mg HS PO Last administered on 10/29/16 20:40; Admin Dose 0.4 MG; Start 10/27/16 at 21:00 Lactulose (Enulose) 20 gm QID NGT Last administered on 10/30/16 08:43; Admin Dose 20 GM; Start 10/27/16 at 10:00 Insulin Aspart NOVOLOG *MILD* ALGORI... Q4 SC Last administered on 10/30/16 08 :51; Admin Dose 1 UNIT; Start 10/27/16 at 14:00 Norepinephrine/ Dextrose (Levophed/D5W) 500 ml @ 0 mls/hr TITRATE IV ; Start at 19:00 Miscellaneous Information 1 ea NOTE XX ; Start 10/27/16 at 13:30 Glucose (Glutose) 15 gm Q15M PRN PO DECREASED GLUCOSE; Start 10/27/16 at 13:30 Glucose (Glutose) 22.5 gm Q15M PRN PO DECREASED GLUCOSE; Start 10/27/16 at 13: 30 Dextrose (D50w Syringe) 25 ml Q15M PRN IV DECREASED GLUCOSE; Start 10/27/16 at 13:30 Dextrose (D50w Syringe) 50 ml Q15M PRN IV DECREASED GLUCOSE; Start 10/27/16 at 13:30 Glucagon (Glucagen) 1 mg Q15M PRN IM DECREASED GLUCOSE; Start 10/27/16 at 13:30 Glucose 15 gm 15 gm Q15M PRN BUCCAL DECREASED GLUCOSE; Start 10/27/16 at 13:30 Sodium Chloride (NS) 1,000 ml @ 75 mls/hr [id number] IV Last administered on 10/29 19:49; Admin Dose 75 MLS/HR; Start 10/27/16 at 16:30 Famotidine (Pepcid) 20 mg Q12 NGT Last administered on 10/30/16 08:43; Admin Dose 20 MG; Start 10/27/16 at 21:00 Rifaximin (Xifaxan) 550 mg BID NGT Last administered on 10/30/16 08:43; Admin Dose 550 MG; Start 10/27/16 at 21:30 Docusate Sodium (Colace Liquid Cup) 100 mg BID NGT Last administered on 08:43; Admin Dose 100 MG; Start 10/27/16 at 21:00 Midodrine 10 mg 10 mg TID@08,14,20 NGT Last administered on 10/30/16 08:45; Admin Dose 10 MG; Start 10/28/16 at 08:00 Propofol (Diprivan) 100 ml @ 2.1 mls/hr Q12H PRN IV AGITATION/ANXIETY Last administered on 10/29/16 15:18; Admin Dose 4.2 MLS/HR; Start 10/29/16 at 23:30 CHRISTEN STEWART Oct 30, 2016 10:10
--- NOTE | 2016-10-30 10:12 | RADRPT ---
PROCEDURE: XR Chest. CLINICAL INDICATION: Shortness of breath TECHNIQUE: An AP view of the chest was obtained. COMPARISON: Chest x-ray dated 10/29/2016 FINDINGS: The endotracheal tube tip is just above the chiqui. The tip of the enteric tube projects over the l eft upper quadrant. Lung volumes are low. There is prominence of the interstitial and central pulmonary vascular corey ngs. No pleural effusion or pneumothorax is seen. The cardiomediastinal silhouette is mildly enla rged . Calcifications are seen within the aortic arch. The osseous structures demonstrate senescent changes. IMPRESSION: 1. Lung volumes are low. There is mild prominence of the interstitial markings which appears incre ased from prior examination, suggesting mild interstitial edema. 2. Mild cardiomegaly and aortic atherosclerosis. 3. Tubes and lines, as described above. The endotracheal tube tip is just above the chiqui. Retract ion by 2 cm is recommended. RPTAT: HH .Penny Lopez MD, MD Date Time Electronically viewed and signed by .Penny Lopez MD, on 10/30/2016 10:11 .G/
[2016-10-30] MEDS: SOD CHLORIDE 0.9% 1,000 ML IV SCH (11:10)
[2016-10-30] MEDS ORDERED: LIDOCAINE 1% (MPF) 5 ML VIAL ONE (11:18)
--- NOTE | 2016-10-30 12:47 | RADRPT ---
PROCEDURE: Ultrasound guided paracentesis. CLINICAL INDICATION: Ascites and shortness of breath. COMPARISON: No prior studies are available for comparison. TECHNIQUE: The risks, benefits, and alternatives were explained to the patient and/or the patient's family, inc luding but not limited to bleeding, infection, pain, visceral or vascular damage, shock, and . The patient and/or the patient's family understood the risks and the alternatives and wished to pro ceed with the procedure. Informed written consent was obtained. A procedural time out was performed . The patient's name, date of , and procedure to be performed were verified. Utilizing ultrasound guidance, optimal location for entry to the peritoneal cavity was ascertained. The overlying skin was prepped and draped in the usual sterile fashion. Approximately 10 ml of 1% Xylocaine was injected locally for pain control. Using ultrasound guidance, an 8 [place] catheter wa s introduced into the peritoneal cavity in the right lower quadrant without difficulty. FINDINGS: Initial images demonstrate ascites. Approximately 5.3 liters of serous fluid was aspirated and disc arded. The patient tolerated the procedure well without complication. IMPRESSION: 1. Successful ultrasound-guided paracentesis. RPTAT: QQ .Rd Lugo MD, MD Date Time Electronically viewed and signed by .Rd Lugo MD, on 10/30/2016 12:47 .R/
--- NOTE | 2016-10-30 18:20 | PN ---
Date/Time of Note Date/Time of Note DATE: 10/30/16 TIME: 18:15 Assessment/Plan VTE Prophylaxis VTE Prophylaxis Intervention: SCD's Lines/Catheters IV Catheter Type (from Nrs): Peripheral IV Urinary Cath still in place: Yes Reason Cath still needed: urinary retention, other (indicate) (strict I/O ) Assessment/Plan Assessment/Plan 1. acute resp failure due to decompensated liver cirrhosis and AMS s/p Extubation on 10/30/16 2. AMS due to acute hepatic encephalopathy 3. ESLD with recurrent ascites requiring frequent paracentesis 4. Sepsis syndrome as per criteria 5.hypertension 6. Recurrent ascites s/p US paracentesis 10/30/16 5.3 L removed Plan: IV abx s/p Extubation on 10/30/16 BP still labile s/p paracentesis 5.7 L removed, I received a call from [facility] but no call back number provided to my office, I tried calling back on [phone] but it was [employer] case operator number and she dose not who called us SCD For DVT prophylaxis , no heparin/lovenox for DVT prophylaxis due to liver cirrhosis and thrombocytopenia Subjective 24 Hr Interval Summary Free Text/Dictation s/p Paracentesis 5.3 L removed, s/p extubated on 5 liter oxygen, BP stable Exam/Review of Systems Vital Signs Vitals Vital Signs Date Time Temp Pulse Resp B/P Pulse Ox O2 Delivery O2 Flow Rate FiO2 10/30/16 16:00 63 16 105/60 100 10/30/16 16:00 98.3 10/30/16 14:54 5.0 10/30/16 13:00 30 10/30/16 10:00 Mechanical Ventilator Intake and Output 10/29/16 10/29/16 10/30/16 15:00 23:00 07:00 Intake Total 831.0 ml 696.96 ml 552.72 ml Output Total 120 ml 185 ml 150 ml Balance 711.0 ml 511.96 ml 402.72 ml Exam Constitutional: alert Head: normocephalic Eyes: other (no JVD ) ENMT: nl external ears & nose Neck: other (no JVD ), supple Respiratory: crackles/rales, diminished breath sounds Cardiovascular: regular rate and rhythm Gastrointestinal: ascites, non-tender, soft Musculoskeletal: other (1-2+ edema ) Neurological: lethargic Results Result Diagram: 10/30/16 0538 10/30/16 0538 Results 24 hrs Laboratory Tests Test 10/29/16 20:51 10/30/16 01:17 10/30/16 05:00 10/30/16 05:22 Bedside Glucose 151 137 141 Blood Gas Specimen Source Blood arterial Arterial Blood Date Drawn 10/30/2016 5:05:06 AM Arterial Blood pH (Temp corrected) 7.457 H Arterial Blood pCO2 (Temp correct) 25.6 L Arterial Blood pO2 (Temp corrected) 118.0 H Arterial Blood HCO3 17.7 L Arterial Blood Base Excess -5.0 L Arterial Blood Oxygen Saturation 98.1 H Clint Test ACCEPTAB Arterial Blood Gas Puncture Site Left Radial Arterial Blood Carboxyhemoglobin 0.3 Arterial Blood Methemoglobin 0.4 Blood Gas A-a O2 Differential 65.8 H Oxyhemoglobin Percent 97.4 Total Hemoglobin 10.0 L Blood Gas Temperature 37.0 Blood Gas Respiration Rate 10.0 Blood Gas Actual Respiration Rate 17 Blood Gas Modality VENT - AC FiO2 30.0 Blood Gas Tidal Volume 400.0 Blood Gas Low PEEP Setting 5.0 Blood Gas Notified Whom K B Blood Gas Notified Time 10/30/2016 5:26:24 AM Test 10/30/16 05:38 10/30/16 08:50 10/30/16 09:10 10/30/16 12:57 White Blood Count 4.0 L Red Blood Count 3.33 L Hemoglobin 8.4 L Hematocrit 27.0 L Mean Corpuscular Volume 81.1 L Mean Corpuscular Hemoglobin 25.2 L Mean Corpuscular Hemoglobin Concent 31.1 L Red Cell Distribution Width 26.4 H Platelet Count 53 L Mean Platelet Volume Neutrophils % 72.3 Lymphocytes % 9.4 L Monocytes % 13.1 H Eosinophils % 4.5 Basophils % 0.5 Nucleated Red Blood Cells % 0.0 Neutrophils # 2.9 Lymphocytes # 0.4 L Monocytes # 0.5 Eosinophils # 0.2 Basophils # 0.0 Nucleated Red Blood Cells # 0.0 Prothrombin Time 18.3 H Prothrombin Time Ratio 1.4 INR International Normalized Ratio 1.51 Activated Partial Thromboplast Time 36.3 H Sodium Level 138 Potassium Level 4.3 Chloride Level 113 H Carbon Dioxide Level 19 L Anion Gap 10 Blood Urea Nitrogen 28 H Creatinine 1.00 Glucose Level 135 Calcium Level 7.8 L Total Bilirubin 0.8 Direct Bilirubin 0.00 Indirect Bilirubin 0.8 Aspartate Amino Transf (AST/SGOT) 27 Alanine Aminotransferase (ALT/SGPT) 37 Alkaline Phosphatase 135 H Total Protein 6.1 Albumin 2.4 L Globulin 3.70 H Albumin/Globulin Ratio 0.64 Bedside Glucose 148 157 Ammonia 85 H Test 10/30/16 16:45 Bedside Glucose 130 Medications Medications Current Medications Ondansetron HCl (Zofran Tab) 4 mg Q6H PRN PO NAUSEA AND/OR VOMITING; Start at 10:00 Tamsulosin HCl (Flomax) 0.4 mg HS PO Last administered on 10/29/16 20:40; Admin Dose 0.4 MG; Start 10/27/16 at 21:00 Lactulose (Enulose) 20 gm QID NGT Last administered on 10/30/16 16:46; Admin Dose 20 GM; Start 10/27/16 at 10:00 Insulin Aspart NOVOLOG *MILD* ALGORI... Q4 SC Last administered on 10/30/16 12 :59; Admin Dose 1 UNIT; Start 10/27/16 at 14:00 Norepinephrine/ Dextrose (Levophed/D5W) 500 ml @ 0 mls/hr TITRATE IV ; Start at 19:00 Miscellaneous Information 1 ea NOTE XX ; Start 10/27/16 at 13:30 Glucose (Glutose) 15 gm Q15M PRN PO DECREASED GLUCOSE; Start 10/27/16 at 13:30 Glucose (Glutose) 22.5 gm Q15M PRN PO DECREASED GLUCOSE; Start 10/27/16 at 13: 30 Dextrose (D50w Syringe) 25 ml Q15M PRN IV DECREASED GLUCOSE; Start 10/27/16 at 13:30 Dextrose (D50w Syringe) 50 ml Q15M PRN IV DECREASED GLUCOSE; Start 10/27/16 at 13:30 Glucagon (Glucagen) 1 mg Q15M PRN IM DECREASED GLUCOSE; Start 10/27/16 at 13:30 Glucose 15 gm 15 gm Q15M PRN BUCCAL DECREASED GLUCOSE; Start 10/27/16 at 13:30 Sodium Chloride (NS) 1,000 ml @ 75 mls/hr [id number] IV Last administered on 10/30 11:10; Admin Dose 75 MLS/HR; Start 10/27/16 at 16:30 Famotidine (Pepcid) 20 mg Q12 NGT Last administered on 10/30/16 08:43; Admin Dose 20 MG; Start 10/27/16 at 21:00 Rifaximin (Xifaxan) 550 mg BID NGT Last administered on 10/30/16 08:43; Admin Dose 550 MG; Start 10/27/16 at 21:30 Docusate Sodium (Colace Liquid Cup) 100 mg BID NGT Last administered on 08:43; Admin Dose 100 MG; Start 10/27/16 at 21:00 Midodrine 10 mg 10 mg TID@08,14,20 NGT Last administered on 10/30/16 12:56; Admin Dose 10 MG; Start 10/28/16 at 08:00 Propofol (Diprivan) 100 ml @ 2.1 mls/hr Q12H PRN IV AGITATION/ANXIETY Last administered on 10/29/16 15:18; Admin Dose 4.2 MLS/HR; Start 10/29/16 at 23:30 LORRIE MENDOZA MD Oct 30, 2016 18:20
[2016-10-30] MEDS: TAMSULOSIN (SR) 0.4 MG CAP PO SCH (20:35)
[2016-10-31] VITALS (26 sets, daily range): BP systolic 85–99; BP diastolic 49–64; PULSE 56–107; RESP 12–19
[2016-10-31] MEDS: SOD CHLORIDE 0.9% 1,000 ML IV SCH ×2 (00:30→05:26)
[2016-10-31] MEDS: INSULIN ASPART [NOVOLOG] 3 ML PEN SC SCH ×8 (01:28→20:31)
[2016-10-31 05:03] LABS: ADD SCAN DIFF NO
[2016-10-31 05:14] LABS: ABNORMAL IP MESSAGE 1; BASOPHILS % 0.4 % (0.0-2.0); EOSINOPHILS # 0.1 10^3/ul (0.0-0.5); EOSINOPHILS % 4.6 % (0.0-7.0); HEMATOCRIT 27.1 % (42.0-52.0); HEMOGLOBIN 8.1 g/dl (14.0-18.0); LYMPHOCYTES # 0.3 10^3/ul (0.8-2.9); LYMPHOCYTES % 10.6 % (15.0-51.0); MEAN CORPUSCULAR HEMOGLOBIN 24.5 pg (29.0-33.0); MEAN CORPUSCULAR HGB CONC 29.9 g/dl (32.0-37.0); MEAN CORPUSCULAR VOLUME 81.9 fl (82.0-101.0); MONOCYTE # 0.3 10^3/ul (0.3-0.9); MONOCYTES % 10.6 % (0.0-11.0); NEUTROPHIL # 2.1 10^3/ul (1.6-7.5); NEUTROPHILS % 73.4 % (39.0-77.0); RED BLOOD COUNT 3.31 10^6/ul (4.70-6.10); RED CELL DISTRIBUTION WIDTH 26.5 % (11.5-14.5); WHITE BLOOD COUNT 2.8 10^3/ul (4.8-10.8)
[2016-10-31 05:27] LABS: INR 1.49; PROTIME 18.1 Sec (12.2-14.2); PT RATIO 1.4
[2016-10-31 05:28] LABS: PARTIAL THROMBOPLASTIN TIME 35.6 Sec (25.0-35.0)
[2016-10-31 05:32] LABS: PLATELET COUNT 55 10^3/UL (140-415)
[2016-10-31 05:36] LABS: ALBUMIN 2.4 g/dl (3.3-4.9); ALBUMIN/GLOBULIN RATIO 0.64; BILIRUBIN,INDIRECT 0.8 mg/dl (0-1.1); BILIRUBIN,TOTAL 0.8 mg/dl (0.2-1.3); CREATININE 1.02 mg/dl (0.61-1.24); POTASSIUM 4.4 mmol/L (3.5-5.1); TOTAL PROTEIN 6.1 g/dl (6.1-8.1)
--- NOTE | 2016-10-31 08:22 | CONS ---
Date/Time of Note Date/Time of Note DATE: 10/31/16 TIME: : Assessment/Plan Assessment/Plan Additional Assessment/Plan Assessment and recommendations; 1. Patient admitted with respiratory failure due to hepatic encephalopathy with marked overall clinical improvement. 2. Recurrent ascites, status post large volume paracentesis yesterday. 3. Pancytopenia. Continue current treatment. Transfer patient to medical floor. Consultation Date/Type/Reason Admit Date/Time Oct 27, 2016 at 09:23 Type of Consultation: Pulmonary/critical care 24 HR Interval Summary Free Text/Dictation Patient condition is stable. He was successfully intubated yesterday afternoon. Patient remains awake and alert. Denies any shortness of breath, chest pain. Any abdominal pain, nausea vomiting. Patient underwent large volume paracentesis yesterday afternoon, 5.3 L of fluid was removed. General exam; elderly male, awake alert currently in no distress. Exam/Review of Systems Vital Signs Vitals Vital Signs Date Time Temp Pulse Resp B/P Pulse Ox O2 Delivery O2 Flow Rate FiO2 10/31/16 08:00 Nasal Cannula 2.0 10/31/16 08:00 98.3 77 14 85/62 100 10/31/16 06:05 30 Intake and Output 10/30/16 10/30/16 10/31/16 15:00 23:00 07:00 Intake Total 760 ml 705 ml 525 ml Output Total 105 ml 95 ml 160 ml Balance 655 ml 610 ml 365 ml Exam HEENT examination; supple neck, no JVD. No lymphadenopathy. Midline trachea. No thyromegaly. Patient has fair dentition. Pupils are equal and reactive to light. Chest examination; clear to auscultation. S1-S2 audible, no murmurs. Regular rhythm. Abdomen examination; soft, bowel sounds audible, nontender. No organomegaly felt. Extremity examination; no peripheral edema. [employer]GER examination; no focal deficit. Results Result Diagram: 10/31/16 0437 10/31/16 0437 Results 24 hrs Laboratory Tests Test 10/30/16 08:50 10/30/16 09:10 10/30/16 12:57 10/30/16 16:45 Bedside Glucose 148 157 130 Ammonia 85 H Test 10/30/16 20:45 10/31/16 01:24 10/31/16 04:37 10/31/16 05:17 Bedside Glucose 155 152 104 White Blood Count 2.8 #L Red Blood Count 3.31 L Hemoglobin 8.1 L Hematocrit 27.1 L Mean Corpuscular Volume 81.9 L Mean Corpuscular Hemoglobin 24.5 L Mean Corpuscular Hemoglobin Concent 29.9 L Red Cell Distribution Width 26.5 H Platelet Count 55 L Mean Platelet Volume Neutrophils % 73.4 Lymphocytes % 10.6 L Monocytes % 10.6 Eosinophils % 4.6 Basophils % 0.4 Nucleated Red Blood Cells % 0.0 Neutrophils # 2.1 Lymphocytes # 0.3 L Monocytes # 0.3 Eosinophils # 0.1 Basophils # 0.0 Nucleated Red Blood Cells # 0.0 Prothrombin Time 18.1 H Prothrombin Time Ratio 1.4 INR International Normalized Ratio 1.49 Activated Partial Thromboplast Time 35.6 H Sodium Level 139 Potassium Level 4.4 Chloride Level 113 H Carbon Dioxide Level 20 L Anion Gap 10 Blood Urea Nitrogen 29 H Creatinine 1.02 Glucose Level 113 Calcium Level 8.0 L Magnesium Level 2.1 Total Bilirubin 0.8 Direct Bilirubin 0.00 Indirect Bilirubin 0.8 Aspartate Amino Transf (AST/SGOT) 28 Alanine Aminotransferase (ALT/SGPT) 35 Alkaline Phosphatase 136 H Total Protein 6.1 Albumin 2.4 L Globulin 3.70 H Albumin/Globulin Ratio 0.64 Medications Medications Current Medications Ondansetron HCl (Zofran Tab) 4 mg Q6H PRN PO NAUSEA AND/OR VOMITING; Start at 10:00 Tamsulosin HCl (Flomax) 0.4 mg HS PO Last administered on 10/30/16 20:35; Admin Dose 0.4 MG; Start 10/27/16 at 21:00 Lactulose (Enulose) 20 gm QID NGT Last administered on 10/30/16 20:35; Admin Dose 20 GM; Start 10/27/16 at 10:00 Insulin Aspart NOVOLOG *MILD* ALGORI... Q4 SC Last administered on 10/31/16 01 :28; Admin Dose 1 UNIT; Start 10/27/16 at 14:00 Norepinephrine/ Dextrose (Levophed/D5W) 500 ml @ 0 mls/hr TITRATE IV ; Start at 19:00 Miscellaneous Information 1 ea NOTE XX ; Start 10/27/16 at 13:30 Glucose (Glutose) 15 gm Q15M PRN PO DECREASED GLUCOSE; Start 10/27/16 at 13:30 Glucose (Glutose) 22.5 gm Q15M PRN PO DECREASED GLUCOSE; Start 10/27/16 at 13: 30 Dextrose (D50w Syringe) 25 ml Q15M PRN IV DECREASED GLUCOSE; Start 10/27/16 at 13:30 Dextrose (D50w Syringe) 50 ml Q15M PRN IV DECREASED GLUCOSE; Start 10/27/16 at 13:30 Glucagon (Glucagen) 1 mg Q15M PRN IM DECREASED GLUCOSE; Start 10/27/16 at 13:30 Glucose 15 gm 15 gm Q15M PRN BUCCAL DECREASED GLUCOSE; Start 10/27/16 at 13:30 Sodium Chloride (NS) 1,000 ml @ 75 mls/hr [id number] IV Last administered on 10/31 05:26; Admin Dose 75 MLS/HR; Start 10/27/16 at 16:30 Famotidine (Pepcid) 20 mg Q12 NGT Last administered on 10/30/16 20:35; Admin Dose 20 MG; Start 10/27/16 at 21:00 Rifaximin (Xifaxan) 550 mg BID NGT Last administered on 10/30/16 20:35; Admin Dose 550 MG; Start 10/27/16 at 21:30 Docusate Sodium (Colace Liquid Cup) 100 mg BID NGT Last administered on 20:35; Admin Dose 100 MG; Start 10/27/16 at 21:00 Midodrine 10 mg 10 mg TID@08,14,20 NGT Last administered on 10/30/16 20:38; Admin Dose 10 MG; Start 10/28/16 at 08:00 Propofol (Diprivan) 100 ml @ 2.1 mls/hr Q12H PRN IV AGITATION/ANXIETY Last administered on 10/29/16 15:18; Admin Dose 4.2 MLS/HR; Start 10/29/16 at 23:30 CHRISTEN STEWART 17, 2017 08:22
[2016-10-31] MEDS: LACTULOSE 30ML CUP NGT SCH (08:45)
[2016-10-31] MEDS: MIDODRINE 5 MG TAB NGT SCH (08:45)
[2016-10-31] MEDS: RIFAXIMIN 550 MG TAB NGT SCH (08:45)
[2016-10-31] MEDS: FAMOTIDINE 20 MG TAB NGT SCH (08:45)
[2016-10-31] MEDS: DOCUSATE SODIUM 10 MG/ML (10ML CUP) NGT SCH (08:45)
--- NOTE | 2016-10-31 09:20 | RADRPT ---
PROCEDURE: XR Chest 1 view. CLINICAL INDICATION: Shortness of breath TECHNIQUE: AP views of the chest was obtained. COMPARISON: Yesterday FINDINGS: The heart is large. Calcified atherosclerosis is noted in the aorta. Endotracheal tube has been rem man. Nasogastric tube is stable and appears in grossly appropriate location. The lungs are hypoin flated. Diffuse interstitial prominence in both lungs is unchanged. Patchy infiltrates is seen in the left lower lobe. Atelectasis is seen at the right lung base. The osseous structures are unchan ged. IMPRESSION: Cardiomegaly with calcified atherosclerosis in the aorta. Interval extubation. Hypoinflated lungs. Continued patchy infiltrates in the left lower lobe. Atelectasis at the right lung base. Stable mild interstitial prominence in both lungs. Interstitial prominence could be chronic. RPTAT: AA .Cam Fernando MD, Date Time Electronically viewed and signed by .Cam Fernando MD, on 10/31/2016 09:19 .P/
--- NOTE | 2016-10-31 09:58 | PN ---
Date/Time of Note Date/Time of Note DATE: 10/31/16 TIME: 09:50 Assessment/Plan VTE Prophylaxis VTE Prophylaxis Intervention: SCD's Lines/Catheters IV C[facility]ter Type (from [facility]): Peripheral IV Urinary Cath still in place: Yes Reason Cath still needed: urinary retention Assessment/Plan Problems: (1) Acute respiratory failure Status: Acute Comment: He is now extubated and breathing on his own. His x-rays and reported some changes in the left lung which may be chronic. As her counts were stable to consideration to a CT scan to make sure he did not have a pneumonia or developing pneumonia when he was over intubated Qualifiers: Respiratory failure complication: unspecified whether with hypoxia or hypercapnia Qualified Code: J96.00 - Acute respiratory failure, unspecified whether with hypoxia or hypercapnia (2) Cirrhosis Status: Acute Comment: He has advanced cirrhosis with pancytopenia and multiple complications. He has had a recent large volume paracentesis for 5.6 L yesterday. He still has significant ascites. Continue his treatment and resume his diuretic therapy tomorrow morning. Please note he has not been on a beta-opal for portal hypertension the best available information Qualifiers: Hepatic cirrhosis type: unspecified hepatic cirrhosis Ascites presence: with ascites Qualified Code: K74.60 - Cirrhosis of liver with ascites, unspecified hepatic cirrhosis type (3) Pancytopenia Status: Acute Comment: Due to advanced cirrhosis (4) Bilateral inguinal hernia Status: Chronic Comment: No indication to immediately intervene with this. Our colleagues at [facility] will probably repair this will need to his liver transplant Qualifiers: Obstruction and gangrene presence: without obstruction or gangrene Recurrence: non-recurrent Qualified Code: K40.20 - Non-recurrent bilateral inguinal hernia without obstruction or gangrene (5) Umbilical hernia Status: Chronic Comment: Noted and as above Qualifiers: Obstruction and gangrene presence: without obstruction or gangrene Qualified Code: K42.9 - Umbilical hernia without obstruction and without gangrene (6) Hydrocele, right Status: Chronic Comment: Noted no indication for intervention at this moment (7) Hepatic encephalopathy Status: Resolved Comment: Resolved although incompletely. Continue rifaximin and lactulose (8) BPH (benign prostatic hyperplasia) Status: Chronic Comment: Continue alpha blockade therapy. Please note caution due to the possibility of inducing orthostasis in the somewhat fragile patient Qualifiers: Prostatic enlargement morphology: unspecified morphology Lower urinary tract symptom presence: symptoms present Qualified Code: N40.1 - Benign prostatic hyperplasia with lower urinary tract symptoms, unspecified morphology (9) Type 2 diabetes mellitus treated with insulin Status: Chronic Comment: Resume insulin therapy gently watching for overtreatment (10) Gastroesophageal reflux disease Status: Chronic Comment: Continue H2 opal therapy Qualifiers: Esophagitis presence: without esophagitis Qualified Code: K21.9 - Gastroesophageal reflux disease without esophagitis Subjective 24 Hr Interval Summary Free Text/Dictation male who appears older than his chronologic age lying in bed able to converse Constitutional: no complaints (No fevers chills or sweats) Eyes: no complaints Respiratory: no complaints (No shortness of breath no cough no wheezing) Cardiovascular: no complaints (No chest pain no palpitations) Gastrointestinal: no complaints (No abdominal pain no nausea no vomiting) Genitourinary: no complaints, other (Note has Simmons catheter in place) Exam/Review of Systems Vital Signs Vitals Vital Signs Date Time Temp Pulse Resp B/P Pulse Ox O2 Delivery O2 Flow Rate FiO2 10/31/16 08:00 Nasal Cannula 2.0 10/31/16 08:00 98.3 77 14 85/62 100 10/31/16 06:05 30 Intake and Output 10/30/16 10/30/16 10/31/16 15:00 23:00 07:00 Intake Total 760 ml 705 ml 525 ml Output Total 105 ml 95 ml 160 ml Balance 655 ml 610 ml 365 ml Exam Constitutional: alert, oriented Respiratory: clear to auscultation, normal air movement Cardiovascular: nl pulses, regular rate and rhythm Gastrointestinal: ascites, non-tender, soft, splenomegaly Results Result Diagram: 10/31/16 0437 10/31/16 0437 Results 24 hrs Laboratory Tests Test 10/30/16 12:57 10/30/16 16:45 10/30/16 20:45 10/31/16 01:24 Bedside Glucose 157 130 155 152 Test 10/31/16 04:37 10/31/16 05:17 10/31/16 08:41 White Blood Count 2.8 #L Red Blood Count 3.31 L Hemoglobin 8.1 L Hematocrit 27.1 L Mean Corpuscular Volume 81.9 L Mean Corpuscular Hemoglobin 24.5 L Mean Corpuscular Hemoglobin Concent 29.9 L Red Cell Distribution Width 26.5 H Platelet Count 55 L Mean Platelet Volume Neutrophils % 73.4 Lymphocytes % 10.6 L Monocytes % 10.6 Eosinophils % 4.6 Basophils % 0.4 Nucleated Red Blood Cells % 0.0 Neutrophils # 2.1 Lymphocytes # 0.3 L Monocytes # 0.3 Eosinophils # 0.1 Basophils # 0.0 Nucleated Red Blood Cells # 0.0 Prothrombin Time 18.1 H Prothrombin Time Ratio 1.4 INR International Normalized Ratio 1.49 Activated Partial Thromboplast Time 35.6 H Sodium Level 139 Potassium Level 4.4 Chloride Level 113 H Carbon Dioxide Level 20 L Anion Gap 10 Blood Urea Nitrogen 29 H Creatinine 1.02 Glucose Level 113 Calcium Level 8.0 L Magnesium Level 2.1 Total Bilirubin 0.8 Direct Bilirubin 0.00 Indirect Bilirubin 0.8 Aspartate Amino Transf (AST/SGOT) 28 Alanine Aminotransferase (ALT/SGPT) 35 Alkaline Phosphatase 136 H Total Protein 6.1 Albumin 2.4 L Globulin 3.70 H Albumin/Globulin Ratio 0.64 Bedside Glucose 104 173 Medications Medications Current Medications Ondansetron HCl (Zofran Tab) 4 mg Q6H PRN PO NAUSEA AND/OR VOMITING; Start at 10:00 Tamsulosin HCl (Flomax) 0.4 mg HS PO Last administered on 10/30/16 20:35; Admin Dose 0.4 MG; Start 10/27/16 at 21:00 Lactulose (Enulose) 20 gm QID NGT Last administered on 10/31/16 08:45; Admin Dose 20 GM; Start 10/27/16 at 10:00 Insulin Aspart NOVOLOG *MILD* ALGORI... Q4 SC Last administered on 10/31/16 08 :43; Admin Dose 1 UNIT; Start 10/27/16 at 14:00 Norepinephrine/ Dextrose (Levophed/D5W) 500 ml @ 0 mls/hr TITRATE IV ; Start at 19:00 Miscellaneous Information 1 ea NOTE XX ; Start 10/27/16 at 13:30 Glucose (Glutose) 15 gm Q15M PRN PO DECREASED GLUCOSE; Start 10/27/16 at 13:30 Glucose (Glutose) 22.5 gm Q15M PRN PO DECREASED GLUCOSE; Start 10/27/16 at 13: 30 Dextrose (D50w Syringe) 25 ml Q15M PRN IV DECREASED GLUCOSE; Start 10/27/16 at 13:30 Dextrose (D50w Syringe) 50 ml Q15M PRN IV DECREASED GLUCOSE; Start 10/27/16 at 13:30 Glucagon (Glucagen) 1 mg Q15M PRN IM DECREASED GLUCOSE; Start 10/27/16 at 13:30 Glucose 15 gm 15 gm Q15M PRN BUCCAL DECREASED GLUCOSE; Start 10/27/16 at 13:30 Sodium Chloride (NS) 1,000 ml @ 75 mls/hr [id number] IV Last administered on 10/31 05:26; Admin Dose 75 MLS/HR; Start 10/27/16 at 16:30 Famotidine (Pepcid) 20 mg Q12 NGT Last administered on 10/31/16 08:45; Admin Dose 20 MG; Start 10/27/16 at 21:00 Rifaximin (Xifaxan) 550 mg BID NGT Last administered on 10/31/16 08:45; Admin Dose 550 MG; Start 10/27/16 at 21:30 Docusate Sodium (Colace Liquid Cup) 100 mg BID NGT Last administered on 08:45; Admin Dose 100 MG; Start 10/27/16 at 21:00 Midodrine 10 mg 10 mg TID@08,14,20 NGT Last administered on 10/31/16 08:45; Admin Dose 10 MG; Start 10/28/16 at 08:00 Propofol (Diprivan) 100 ml @ 2.1 mls/hr Q12H PRN IV AGITATION/ANXIETY Last administered on 10/29/16 15:18; Admin Dose 4.2 MLS/HR; Start 10/29/16 at 23:30 Insulin Glargine (Lantus) 4 unit BID@08,20 SC ; Start 10/31/16 at 20:00; Status LYLE GAUTAM MD Oct 31, 2016 09:58
[2016-10-31] MEDS ORDERED: CYANOCOBALAMIN 500 MCG TAB PO ONE (10:00)
[2016-10-31] MEDS ORDERED: PHYTONADIONE (1 MG/ML PO SYG) PO ONE (11:30)
[2016-10-31] MEDS: LACTULOSE 30ML CUP PO SCH ×3 (12:43→20:23)
[2016-10-31 14:05] LABS: AADO2 Arterial 71.5 mmHg (7.0-24.0); Allen Test ACCEPTAB; Arterial Base Excess -4.2 mmol/L (-3.0-3); Arterial COHb 0.1 % (0.0-3.0); Arterial Fraction of Oxyhgb 95.9 % (93.0-99.0); Arterial HCO3 19.2 mmol/L (22.0-26.0); Arterial MetHb 0.3 % (0.0-1.5); Arterial Total Hemglobin 9.5 g/dl (12.0-18.0); MODE NASAL CANNULA
[2016-10-31] MEDS: MIDODRINE 5 MG TAB PO SCH ×2 (14:20→20:25)
[2016-10-31] MEDS: DOCUSATE SODIUM 10 MG/ML (10ML CUP) PO SCH (20:23)
[2016-10-31] MEDS: TAMSULOSIN (SR) 0.4 MG CAP PO SCH (20:26)
[2016-10-31] MEDS: RIFAXIMIN 550 MG TAB PO SCH (20:26)
[2016-10-31] MEDS: FAMOTIDINE 20 MG TAB PO SCH (20:26)
[2016-10-31] MEDS: INSULIN GLARGINE [LANtus] 3 ML PEN SC SCH (20:29)
[2016-11-01] VITALS (13 sets, daily range): BP systolic 98–142; BP diastolic 57–75; PULSE 56–70; RESP 14–20
[2016-11-01] MEDS: INSULIN ASPART [NOVOLOG] 3 ML PEN SC SCH ×5 (01:56→17:21)
[2016-11-01] MEDS: SOD CHLORIDE 0.9% 1,000 ML IV SCH (03:10)
[2016-11-01] MEDS: INSULIN GLARGINE [LANtus] 3 ML PEN SC SCH ×2 (07:52→20:06)
--- NOTE | 2016-11-01 08:16 | PN ---
Date/Time of Note Date/Time of Note DATE: 11/01/16 TIME: 08:12 Assessment/Plan VTE Prophylaxis VTE Prophylaxis Intervention: SCD's Lines/Catheters [facility] Peripheral IV Urinary Cath still in place: No (Discontinue Simmons today) Assessment/Plan Problems: (1) Acute respiratory failure Status: Acute Comment: He is improved nicely. I am not quite at the point where I think he is ready for discharge but is close. And then recheck his chest x-ray to make sure that the left lung infiltrate is not a real pathological issue. Qualifiers: Respiratory failure complication: unspecified whether with hypoxia or hypercapnia Qualified Code: J96.00 - Acute respiratory failure, unspecified whether with hypoxia or hypercapnia (2) Cirrhosis Status: Acute Comment: He is unsure about what the cause of the cirrhosis is. Given the diabetes mellitus type 2 it is possibly end-stage nonalcoholic fatty liver disease he denies history of hepatitis or drinking. No evidence of iron overload disease. Qualifiers: Hepatic cirrhosis type: unspecified hepatic cirrhosis Ascites presence: with ascites Qualified Code: K74.60 - Cirrhosis of liver with ascites, unspecified hepatic cirrhosis type (3) Pancytopenia Status: Acute Comment: Secondary to cirrhosis (4) Pneumonia Status: Acute Comment: Recheck chest x-ray. Qualifiers: Pneumonia type: due to unspecified organism Laterality: left Lung location: unspecified part of lung Qualified Code: J18.9 - Pneumonia of left lung due to infectious organism, unspecified part of lung (5) BPH (benign prostatic hyperplasia) Status: Chronic Comment: Adequate control on current medication regimen. Qualifiers: Prostatic enlargement morphology: unspecified morphology Lower urinary tract symptom presence: symptoms present Qualified Code: N40.1 - Benign prostatic hyperplasia with lower urinary tract symptoms, unspecified morphology (6) Type 2 diabetes mellitus treated with insulin Status: Chronic Comment: Blood sugar control is improving nicely. Subjective 24 Hr Interval Summary Free Text/Dictation Patient is more verbal today. Spouse is attempting to assist him to get him up to the bathroom. Constitutional: no complaints (No fevers chills or sweats) Respiratory: no complaints (No cough no shortness of breath) Cardiovascular: no complaints (No chest pain no palpitations) Gastrointestinal: other (Distention without pain from ascites) Genitourinary: no complaints Exam/Review of Systems Vital Signs Vitals Vital Signs Date Time Temp Pulse Resp B/P Pulse Ox O2 Delivery O2 Flow Rate FiO2 11/01/16 07:53 97.9 60 16 118/60 99 11/01/16 01:24 3.0 32 10/31/16 14:50 Room Air Intake and Output 10/31/16 10/31/16 11/01/16 15:00 23:00 07:00 Intake Total 705 ml Output Total 95 ml Balance 610 ml Exam Constitutional: alert, oriented Respiratory: clear to auscultation, normal air movement Cardiovascular: nl pulses, regular rate and rhythm Gastrointestinal: ascites, non-tender, soft, splenomegaly Results Result Diagram: 10/31/16 0437 10/31/16 0437 Results 24 hrs Laboratory Tests Test 10/31/16 08:41 10/31/16 11:38 10/31/16 20:28 11/01/16 01:53 Bedside Glucose 173 156 258 H 242 H Test 11/01/16 05:05 11/01/16 07:47 Bedside Glucose 174 154 Medications Medications Current Medications Ondansetron HCl (Zofran Tab) 4 mg Q6H PRN PO NAUSEA AND/OR VOMITING; Start at 10:00 Tamsulosin HCl (Flomax) 0.4 mg HS PO Last administered on 10/31/16 20:26; Admin Dose 0.4 MG; Start 10/27/16 at 21:00 Insulin Aspart (Novolog Insulin Pen) NOVOLOG *MILD* ALGORI... Q4 SC Last administered on 11/01/16 05:08; Admin Dose 1 UNIT; Start 10/27/16 at 14:00 Miscellaneous Information 1 ea NOTE XX ; Start 10/27/16 at 13:30 Glucose (Glutose) 15 gm Q15M PRN PO DECREASED GLUCOSE; Start 10/27/16 at 13:30 Glucose (Glutose) 22.5 gm Q15M PRN PO DECREASED GLUCOSE; Start 10/27/16 at 13: 30 Dextrose (D50w Syringe) 25 ml Q15M PRN IV DECREASED GLUCOSE; Start 10/27/16 at 13:30 Dextrose (D50w Syringe) 50 ml Q15M PRN IV DECREASED GLUCOSE; Start 10/27/16 at 13:30 Glucagon (Glucagen) 1 mg Q15M PRN IM DECREASED GLUCOSE; Start 10/27/16 at 13:30 Glucose 15 gm 15 gm Q15M PRN BUCCAL DECREASED GLUCOSE; Start 10/27/16 at 13:30 Sodium Chloride (NS) 1,000 ml @ 75 mls/hr [id number] IV Last administered on 10/31 05:26; Admin Dose 75 MLS/HR; Start 10/27/16 at 16:30 Insulin Glargine (Lantus) 4 unit BID@08,20 SC Last administered on 11/01/16 07 :52; Admin Dose 4 UNIT; Start 10/31/16 at 20:00 Docusate Sodium (Colace Liquid Cup) 100 mg BID PO Last administered on 20:23; Admin Dose 100 MG; Start 10/31/16 at 21:00 Famotidine (Pepcid) 20 mg Q12 PO Last administered on 10/31/16 20:26; Admin Dose 20 MG; Start 10/31/16 at 21:00 Lactulose (Enulose) 20 gm QID PO Last administered on 10/31/16 20:23; Admin Dose 20 GM; Start 10/31/16 at 13:00 Midodrine (Proamatine) 10 mg TID@08,14,20 PO Last administered on 10/31/16 20: 25; Admin Dose 10 MG; Start 10/31/16 at 14:00 Rifaximin (Xifaxan) 550 mg BID PO Last administered on 10/31/16 20:26; Admin Dose 550 MG; Start 10/31/16 at 21:00 LYLE VU MD Nov 01, 2016 08:15
[2016-11-01] MEDS ORDERED: INSULIN ASPART [NOVOLOG] 3 ML PEN SC SCH (09:00)
[2016-11-01] MEDS: FAMOTIDINE 20 MG TAB PO SCH ×2 (09:04→20:01)
[2016-11-01] MEDS: FUROSEMIDE 40 MG TAB PO SCH ×2 (09:04→17:15)
[2016-11-01] MEDS: DOCUSATE SODIUM 10 MG/ML (10ML CUP) PO SCH ×2 (09:04→20:00)
[2016-11-01] MEDS: SPIRONOLACTONE 50 MG TAB PO SCH (09:04)
[2016-11-01] MEDS: LACTULOSE 30ML CUP PO SCH ×4 (09:04→20:00)
[2016-11-01] MEDS: RIFAXIMIN 550 MG TAB PO SCH ×2 (09:04→20:01)
[2016-11-01] MEDS: MIDODRINE 5 MG TAB PO SCH ×3 (09:05→20:02)
[2016-11-01] MEDS: Insulin NOVOLOG SS MILD Algorithm (SS with meals and bedtime) SC SCH ×3 (11:48→20:06)
--- NOTE | 2016-11-01 14:14 | CONS ---
Date/Time of Note Date/Time of Note DATE: 11/01/16 TIME: 14:12 Assessment/Plan Assessment/Plan Additional Assessment/Plan Assessment recommendations; 1. Patient admitted for respiratory failure due to hepatic encephalopathy doing very well now. 2. Recurrent ascites, status post large volume paracentesis 48 hours ago. 3. Pancytopenia. Continue current treatment. Patient responding well to current treatment regimen. Overall prognosis remains poor. Consultation Date/Type/Reason Admit Date/Time Oct 27, 2016 at 09:23 Type of Consultation: Pulmonary/critical care 24 HR Interval Summary Free Text/Dictation Patient condition is markedly improved. He has been transferred out of ICU to telemetry unit. Patient currently sitting in a chair by bedside. Surrounded by family. Denies any shortness of breath, does complain of mild abdominal distention without any pain. General exam; elderly male, appears emaciated but awake and alert. Currently in no distress. Exam/Review of Systems Vital Signs Vitals Vital Signs Date Time Temp Pulse Resp B/P Pulse Ox O2 Delivery O2 Flow Rate FiO2 11/01/16 12:19 70 11/01/16 11:03 98.1 14 111/62 99 11/01/16 01:24 3.0 32 10/31/16 14:50 Room Air Intake and Output 10/31/16 10/31/16 11/01/16 15:00 23:00 07:00 Intake Total 705 ml Output Total 95 ml Balance 610 ml Exam HEENT exam; supple neck, no JVD. No lymphadenopathy. Midline trachea. No thyromegaly. Dentition is fair. Pupils are equal and reactive to light. Chest examination; diminished but clear vessel. S1-S2 audible, no murmurs. Regular rhythm. Abdomen examination; protuberant. With positive fluid thrill. Umbilicus is flat. Nontender. Bowel sounds audible. Extremity examination; no peripheral edema. Pulses 1+ bilaterally. Patient has a multiple ecchymosis involving all 4 extremities . CARE CONSULTANT examination; no focal deficit. There is no tremor. Results Result Diagram: 10/31/16 0437 10/31/16 0437 Results 24 hrs Laboratory Tests Test 10/31/16 20:28 11/01/16 01:53 11/01/16 05:05 11/01/16 07:47 Bedside Glucose 258 H 242 H 174 154 Test 11/01/16 11:44 Bedside Glucose 244 H Medications Medications Current Medications Ondansetron HCl (Zofran Tab) 4 mg Q6H PRN PO NAUSEA AND/OR VOMITING; Start at 10:00 Tamsulosin HCl (Flomax) 0.4 mg HS PO Last administered on 10/31/16 20:26; Admin Dose 0.4 MG; Start 10/27/16 at 21:00 Miscellaneous Information 1 ea NOTE XX ; Start 10/27/16 at 13:30 Glucose (Glutose) 15 gm Q15M PRN PO DECREASED GLUCOSE; Start 10/27/16 at 13:30 Glucose (Glutose) 22.5 gm Q15M PRN PO DECREASED GLUCOSE; Start 10/27/16 at 13: 30 Dextrose (D50w Syringe) 25 ml Q15M PRN IV DECREASED GLUCOSE; Start 10/27/16 at 13:30 Dextrose (D50w Syringe) 50 ml Q15M PRN IV DECREASED GLUCOSE; Start 10/27/16 at 13:30 Glucagon (Glucagen) 1 mg Q15M PRN IM DECREASED GLUCOSE; Start 10/27/16 at 13:30 Glucose (Glutose) 15 gm Q15M PRN BUCCAL DECREASED GLUCOSE; Start 10/27/16 at 13 :30 Insulin Glargine (Lantus) 4 unit BID@08,20 SC Last administered on 11/01/16 07 :52; Admin Dose 4 UNIT; Start 10/31/16 at 20:00 Docusate Sodium (Colace Liquid Cup) 100 mg BID PO Last administered on 09:04; Admin Dose 100 MG; Start 10/31/16 at 21:00 Famotidine (Pepcid) 20 mg Q12 PO Last administered on 11/01/16 09:04; Admin Dose 20 MG; Start 10/31/16 at 21:00 Lactulose (Enulose) 20 gm QID PO Last administered on 11/01/16 13:01; Admin Dose 20 GM; Start 10/31/16 at 13:00 Midodrine (Proamatine) 10 mg TID@08,14,20 PO Last administered on 11/01/16 13: 08; Admin Dose 10 MG; Start 10/31/16 at 14:00 Rifaximin (Xifaxan) 550 mg BID PO Last administered on 11/01/16 09:04; Admin Dose 550 MG; Start 10/31/16 at 21:00 Spironolactone (Aldactone) 100 mg DAILY@06 PO Last administered on 11/01/16 09 :04; Admin Dose 100 MG; Start 11/01/16 at 08:30 Diagnostic Test (Pha) (Accu-Chek) 1 ea 02 XX ; Start 11/02/16 at 02:00 CHRISTEN STEWART Nov 01, 2016 14:13
--- NOTE | 2016-11-01 16:05 | RADRPT ---
PROCEDURE: XR Chest. CLINICAL INDICATION: Status post respiratory arrest TECHNIQUE: PA and Lateral views of the chest were obtained. COMPARISON: 10/30/2016 Chest x-ray FINDINGS: The cardiomediastinal silhouette is within normal limits of size. Left base opacity compatible with pleural effusion and/or atelectasis. Left upper lobe linear density compatible subsegmental atelect asis. The right lung is clear. Atherosclerotic calcification of the aorta. No pneumothorax. The osseous structures and soft tissues are unremarkable. IMPRESSION: 1. Left lobe pleural effusion and upper and lower lobe atelectasis. . RPTAT:AAJJ Physician Kev Date Time Electronically viewed and signed by Physician Kev on 11/01/2016 16:05 BRIONNA/
[2016-11-01] MEDS ORDERED: VITAMIN A & D 5 GM OINT PACKET TOP ONE (18:08)
[2016-11-01] MEDS: TAMSULOSIN (SR) 0.4 MG CAP PO SCH (20:01)
[2016-11-02] VITALS (12 sets, daily range): BP systolic 100–118; BP diastolic 57–72; PULSE 58–89; RESP 18–20
[2016-11-02] MEDS: ACCUCHECK AT 2AM (Patients on SS coverage) XX SCH (02:00)
[2016-11-02] MEDS: SPIRONOLACTONE 50 MG TAB PO SCH (05:03)
[2016-11-02] MEDS: FUROSEMIDE 40 MG TAB PO SCH ×2 (05:03→17:12)
[2016-11-02 05:55] LABS: ADD SCAN DIFF NO
[2016-11-02 06:11] LABS: ABNORMAL IP MESSAGE 1; BASOPHILS % 0.8 % (0.0-2.0); EOSINOPHILS # 0.1 10^3/ul (0.0-0.5); EOSINOPHILS % 5.4 % (0.0-7.0); HEMATOCRIT 26.9 % (42.0-52.0); HEMOGLOBIN 8.3 g/dl (14.0-18.0); LYMPHOCYTES # 0.4 10^3/ul (0.8-2.9); LYMPHOCYTES % 15.5 % (15.0-51.0); MEAN CORPUSCULAR HEMOGLOBIN 25.2 pg (29.0-33.0); MEAN CORPUSCULAR HGB CONC 30.9 g/dl (32.0-37.0); MEAN CORPUSCULAR VOLUME 81.8 fl (82.0-101.0); MONOCYTE # 0.3 10^3/ul (0.3-0.9); MONOCYTES % 12.4 % (0.0-11.0); NEUTROPHIL # 1.7 10^3/ul (1.6-7.5); NEUTROPHILS % 65.1 % (39.0-77.0); PLATELET COUNT 55 10^3/UL (140-415); RED BLOOD COUNT 3.29 10^6/ul (4.70-6.10); RED CELL DISTRIBUTION WIDTH 25.9 % (11.5-14.5); WHITE BLOOD COUNT 2.6 10^3/ul (4.8-10.8)
[2016-11-02 06:46] LABS: ALBUMIN 2.6 g/dl (3.3-4.9); ALBUMIN/GLOBULIN RATIO 0.7; BILIRUBIN,INDIRECT 0.4 mg/dl (0-1.1); BILIRUBIN,TOTAL 0.4 mg/dl (0.2-1.3); CREATININE 1.04 mg/dl (0.61-1.24); POTASSIUM 4.1 mmol/L (3.5-5.1); TOTAL PROTEIN 6.3 g/dl (6.1-8.1)
[2016-11-02] MEDS: Insulin NOVOLOG SS MILD Algorithm (SS with meals and bedtime) SC SCH ×4 (07:50→20:34)
[2016-11-02] MEDS: INSULIN ASPART [NOVOLOG] 3 ML PEN SC SCH ×3 (07:50→17:10)
[2016-11-02] MEDS: MIDODRINE 5 MG TAB PO SCH ×3 (08:25→20:27)
[2016-11-02] MEDS: LACTULOSE 30ML CUP PO SCH ×4 (08:25→20:27)
[2016-11-02] MEDS: DOCUSATE SODIUM 10 MG/ML (10ML CUP) PO SCH ×2 (08:25→20:27)
[2016-11-02] MEDS: FAMOTIDINE 20 MG TAB PO SCH ×2 (08:25→20:27)
[2016-11-02] MEDS: RIFAXIMIN 550 MG TAB PO SCH ×2 (08:25→20:27)
[2016-11-02] MEDS: INSULIN GLARGINE [LANtus] 3 ML PEN SC SCH ×2 (08:29→20:30)
--- NOTE | 2016-11-02 13:25 | PN ---
Date/Time of Note Date/Time of Note DATE: 11/02/16 TIME: 13:21 Assessment/Plan VTE Prophylaxis VTE Prophylaxis Intervention: SCD's Lines/Catheters IV [facility] (from [facility] Saline Lock Urinary Cath still in place: No Assessment/Plan Chief Complaint/Hosp Course Assessment and plan 1. Acute respiratory failure likely secondary to end-stage liver disease. Continue on diuretic therapy. Patient status post paracentesis on October 30, 2016 with reported 5.3 L removed. Improving at present. Continue on diuretic. Continue with disease intervention specialist recommendations 2. End-stage liver disease with cirrhosis. Etiology unknown at this time. Patient is follow-up at [facility]. He is currently on liver transplant list. Patient to follow-up with [facility] as outpatient 3. Pancytopenia secondary to #2. H&H remained stable at this time. Will transfuse blood products as needed. Stable at present. 4. Reported pneumonia. Continue on antibiotic therapy. No respiratory distress at this time. Improving at present. 5. BPH. Patient be continued on his Flomax 6. Diabetes. Uncontrolled blood glucose at this time. Insulin will await for Will monitor for clinical improvement Disposition and plan: Respiratory status appears to be improving at present. Continue antibiotics and diuretic therapy. Insulin regimen was adjusted. Await for clinical improvement. Discharged in medically stable and cleared by consultants Discussed plan of care with Problems: Subjective 24 Hr Interval Summary Free Text/Dictation Still noted with elevated blood glucose. Denies any shortness of breath at this time. Still seen with distended abdomen Exam/Review of Systems Vital Signs Vitals Vital Signs Date Time Temp Pulse Resp B/P Pulse Ox O2 Delivery O2 Flow Rate FiO2 11/02/16 12:12 68 11/02/16 11:20 97.5 18 100/60 99 11/02/16 07:43 3.0 11/01/16 16:30 Room Air 11/01/16 01:24 32 Intake and Output 11/01/16 11/01/16 11/02/16 15:00 23:00 07:00 Intake Total 500 ml Output Total 20 ml 200 ml Balance -20 ml 300 ml Exam Constitutional: alert, oriented Psych: nl mood/affect Head: normocephalic Eyes: nl conjunctiva Neck: supple, No jvd Respiratory: diminished breath sounds Cardiovascular: regular rate and rhythm Gastrointestinal: other (Distended nontender) Extremities: edema (Minimal bilateral lower extremities) Neurological: PRODUCT SUPPORT REPRESENTATIVE II-XII intact, nl mental status, nl speech Results Result Diagram: 11/02/16 0523 11/02/16 0523 Results 24 hrs Laboratory Tests Test 11/01/16 17:14 11/01/16 20:04 11/02/16 02:27 11/02/16 05:23 Bedside Glucose 286 H 263 H 208 White Blood Count 2.6 L Red Blood Count 3.29 L Hemoglobin 8.3 L Hematocrit 26.9 L Mean Corpuscular Volume 81.8 L Mean Corpuscular Hemoglobin 25.2 L Mean Corpuscular Hemoglobin Concent 30.9 L Red Cell Distribution Width 25.9 H Platelet Count 55 L Mean Platelet Volume Neutrophils % 65.1 Lymphocytes % 15.5 Monocytes % 12.4 H Eosinophils % 5.4 Basophils % 0.8 Nucleated Red Blood Cells % 0.0 Neutrophils # 1.7 Lymphocytes # 0.4 L Monocytes # 0.3 Eosinophils # 0.1 Basophils # 0.0 Nucleated Red Blood Cells # 0.0 Sodium Level 133 L Potassium Level 4.1 Chloride Level 108 Carbon Dioxide Level 20 L Anion Gap 9 Blood Urea Nitrogen 30 H Creatinine 1.04 Glucose Level 172 Calcium Level 8.0 L Total Bilirubin 0.4 Direct Bilirubin 0.00 Indirect Bilirubin 0.4 Aspartate Amino Transf (AST/SGOT) 36 Alanine Aminotransferase (ALT/SGPT) 40 Alkaline Phosphatase 170 H Total Protein 6.3 Albumin 2.6 L Globulin 3.70 H Albumin/Globulin Ratio 0.70 Test 11/02/16 07:45 11/02/16 12:20 Bedside Glucose 173 384 H Medications Medications Current Medications Ondansetron HCl (Zofran Tab) 4 mg Q6H PRN PO NAUSEA AND/OR VOMITING; Start at 10:00 Tamsulosin HCl (Flomax) 0.4 mg HS PO Last administered on 11/01/16t 20:01; Admin Dose 0.4 MG; Start 10/27/16 at 21:00 Miscellaneous Information 1 ea NOTE XX ; Start 10/27/16 at 13:30 Glucose (Glutose) 15 gm Q15M PRN PO DECREASED GLUCOSE; Start 10/27/16 at 13:30 Glucose (Glutose) 22.5 gm Q15M PRN PO DECREASED GLUCOSE; Start 10/27/16 at 13: 30 Dextrose (D50w Syringe) 25 ml Q15M PRN IV DECREASED GLUCOSE; Start 10/27/16 at 13:30 Dextrose (D50w Syringe) 50 ml Q15M PRN IV DECREASED GLUCOSE; Start 10/27/16 at 13:30 Glucagon (Glucagen) 1 mg Q15M PRN IM DECREASED GLUCOSE; Start 10/27/16 at 13:30 Glucose (Glutose) 15 gm Q15M PRN BUCCAL DECREASED GLUCOSE; Start 10/27/16 at 13 :30 Docusate Sodium (Colace Liquid Cup) 100 mg BID PO Last administered on 08:25; Admin Dose 100 MG; Start 10/31/16 at 21:00 Famotidine (Pepcid) 20 mg Q12 PO Last administered on 11/02/16 08:25; Admin Dose 20 MG; Start 10/31/16 at 21:00 Lactulose (Enulose) 20 gm QID PO Last administered on 11/02/16 08:25; Admin Dose 20 GM; Start 10/31/16 at 13:00 Midodrine (Proamatine) 10 mg TID@08,14,20 PO Last administered on 11/02/16 08: 25; Admin Dose 10 MG; Start 10/31/16 at 14:00 Rifaximin (Xifaxan) 550 mg BID PO Last administered on 11/02/16 08:25; Admin Dose 550 MG; Start 10/31/16 at 21:00 Spironolactone (Aldactone) 100 mg DAILY@06 PO Last administered on 11/02/16 05 :03; Admin Dose 100 MG; Start 11/01/16 at 08:30 Diagnostic Test (Pha) (Accu-Chek) 1 ea 02 XX ; Start 11/02/16 at 02:00 Insulin Glargine (Lantus) 7 unit BID@08,20 SC ; Start 11/02/16 at 20:00 ABBEY MIDDLETON Nov 02, 2016 13:25
--- NOTE | 2016-11-02 15:05 | CONS ---
Date/Time of Note Date/Time of Note DATE: 11/02/16 TIME: 15:03 Assessment/Plan Assessment/Plan Additional Assessment/Plan Assessment recommendations; next 1. 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 2. Pancytopenia. 3. Status post multiple paracenteses. Likely with some recommendation of ascites fluid again. Continue current treatment. Consultation Date/Type/Reason Admit Date/Time Oct 27, 2016 at 09:23 Type of Consultation: Pulmonary/critical care 24 HR Interval Summary Free Text/Dictation Patient condition stable. Remains completely awake alert. Denies any shortness breath, abdominal pain, nausea vomiting. Able to eat well. Patient also been ambulatory. General exam; elderly male, awake alert currently in no distress. Exam/Review of Systems Vital Signs Vitals Vital Signs Date Time Temp Pulse Resp B/P Pulse Ox O2 Delivery O2 Flow Rate FiO2 11/02/16 12:12 68 11/02/16 11:20 97.5 18 100/60 99 11/02/16 07:43 3.0 11/01/16 16:30 Room Air 11/01/16 01:24 32 Intake and Output 11/01/16 11/01/16 11/02/16 15:00 23:00 07:00 Intake Total 500 ml Output Total 20 ml 200 ml Balance -20 ml 300 ml Exam HEENT exam; supple neck, no JVD. No lymphadenopathy. Midline trachea. No thyromegaly. Patient has fair dentition. Chest examined; diminished but clear vessel. S1-S2 audible, no murmurs regular rhythm Abdomen exam; protuberant. Positive fluid thrill. Blackness is flat. Bowel sounds audible. Nontender. Extremity examination; no peripheral edema. Patient has a multiple ecchymosis involving all 4 extremities. TRESTLE MECHANIC exam is; no focal deficit. Results Result Diagram: 11/02/16 0523 11/02/16 0523 Results 24 hrs Laboratory Tests Test 11/01/16 17:14 11/01/16 20:04 11/02/16 02:27 11/02/16 05:23 Bedside Glucose 286 H 263 H 208 White Blood Count 2.6 L Red Blood Count 3.29 L Hemoglobin 8.3 L Hematocrit 26.9 L Mean Corpuscular Volume 81.8 L Mean Corpuscular Hemoglobin 25.2 L Mean Corpuscular Hemoglobin Concent 30.9 L Red Cell Distribution Width 25.9 H Platelet Count 55 L Mean Platelet Volume Neutrophils % 65.1 Lymphocytes % 15.5 Monocytes % 12.4 H Eosinophils % 5.4 Basophils % 0.8 Nucleated Red Blood Cells % 0.0 Neutrophils # 1.7 Lymphocytes # 0.4 L Monocytes # 0.3 Eosinophils # 0.1 Basophils # 0.0 Nucleated Red Blood Cells # 0.0 Sodium Level 133 L Potassium Level 4.1 Chloride Level 108 Carbon Dioxide Level 20 L Anion Gap 9 Blood Urea Nitrogen 30 H Creatinine 1.04 Glucose Level 172 Calcium Level 8.0 L Total Bilirubin 0.4 Direct Bilirubin 0.00 Indirect Bilirubin 0.4 Aspartate Amino Transf (AST/SGOT) 36 Alanine Aminotransferase (ALT/SGPT) 40 Alkaline Phosphatase 170 H Total Protein 6.3 Albumin 2.6 L Globulin 3.70 H Albumin/Globulin Ratio 0.70 Test 11/02/16 07:45 11/02/16 12:20 Bedside Glucose 173 384 H Medications Medications Current Medications Ondansetron HCl (Zofran Tab) 4 mg Q6H PRN PO NAUSEA AND/OR VOMITING; Start at 10:00 Tamsulosin HCl (Flomax) 0.4 mg HS PO Last administered on 11/01/16 20:01; Admin Dose 0.4 MG; Start 10/27/16 at 21:00 Miscellaneous Information 1 ea NOTE XX ; Start 10/27/16 at 13:30 Glucose (Glutose) 15 gm Q15M PRN PO DECREASED GLUCOSE; Start 10/27/16 at 13:30 Glucose (Glutose) 22.5 gm Q15M PRN PO DECREASED GLUCOSE; Start 10/27/16 at 13: 30 Dextrose (D50w Syringe) 25 ml Q15M PRN IV DECREASED GLUCOSE; Start 10/27/16 at 13:30 Dextrose (D50w Syringe) 50 ml Q15M PRN IV DECREASED GLUCOSE; Start 10/27/16 at 13:30 Glucagon (Glucagen) 1 mg Q15M PRN IM DECREASED GLUCOSE; Start 10/27/16 at 13:30 Glucose (Glutose) 15 gm Q15M PRN BUCCAL DECREASED GLUCOSE; Start 10/27/16 at 13 :30 Docusate Sodium (Colace Liquid Cup) 100 mg BID PO Last administered on 08:25; Admin Dose 100 MG; Start 10/31/16 at 21:00 Famotidine (Pepcid) 20 mg Q12 PO Last administered on 11/02/16 08:25; Admin Dose 20 MG; Start 10/31/16 at 21:00 Lactulose (Enulose) 20 gm QID PO Last administered on 11/02/16 13:24; Admin Dose 20 GM; Start 10/31/16 at 13:00 Midodrine (Proamatine) 10 mg TID@08,14,20 PO Last administered on 11/02/16 13: 23; Admin Dose 10 MG; Start 10/31/16 at 14:00 Rifaximin (Xifaxan) 550 mg BID PO Last administered on 11/02/16 08:25; Admin Dose 550 MG; Start 10/31/16 at 21:00 Spironolactone (Aldactone) 100 mg DAILY@06 PO Last administered on 11/02/16 05 :03; Admin Dose 100 MG; Start 11/01/16 at 08:30 Diagnostic Test (Pha) (Accu-Chek) 1 ea 02 XX ; Start 11/02/16 at 02:00 Insulin Glargine (Lantus) 7 unit BID@08,20 SC ; Start 11/02/16 at 20:00 CHRISTEN STEWART Nov 02, 2016 15:05
[2016-11-02] MEDS: TAMSULOSIN (SR) 0.4 MG CAP PO SCH (20:27)
[2016-11-03] VITALS (10 sets, daily range): BP systolic 101–135; BP diastolic 60–82; PULSE 62–70; RESP 17–20
[2016-11-03] MEDS: ACCUCHECK AT 2AM (Patients on SS coverage) XX SCH (02:00)
[2016-11-03] MEDS: FUROSEMIDE 40 MG TAB PO SCH ×2 (06:28→18:16)
[2016-11-03] MEDS: SPIRONOLACTONE 50 MG TAB PO SCH (06:28)
[2016-11-03] MEDS: INSULIN GLARGINE [LANtus] 3 ML PEN SC SCH (08:06)
[2016-11-03] MEDS: Insulin NOVOLOG SS MILD Algorithm (SS with meals and bedtime) SC SCH ×3 (08:06→17:25)
[2016-11-03] MEDS: INSULIN ASPART [NOVOLOG] 3 ML PEN SC SCH ×3 (08:06→18:20)
[2016-11-03] MEDS: RIFAXIMIN 550 MG TAB PO SCH (08:17)
[2016-11-03] MEDS: LACTULOSE 30ML CUP PO SCH ×3 (08:18→17:00)
[2016-11-03] MEDS: FAMOTIDINE 20 MG TAB PO SCH (08:18)
[2016-11-03] MEDS: DOCUSATE SODIUM 10 MG/ML (10ML CUP) PO SCH (08:18)
[2016-11-03] MEDS: MIDODRINE 5 MG TAB PO SCH ×2 (08:21→15:05)
--- NOTE | 2016-11-03 12:13 | CONS ---
Date/Time of Note Date/Time of Note DATE: 11/03/16 TIME: 12:10 Assessment/Plan Assessment/Plan Additional Assessment/Plan Assessment recommendations; 1. Patient admitted with respiratory failure due to hepatic enteropathy with marked overall clinical improvement. 2. End-stage liver disease. 3. Pancytopenia. 4. Recurrent ascites. Continue current treatment. Schedule another paracentesis. Patient can be discharged home after that. Overall prognosis remains poor. Consultation Date/Type/Reason Admit Date/Time Oct 27, 2016 at 09:23 Type of Consultation: Pulmonary/critical care 24 HR Interval Summary Free Text/Dictation Patient condition stable. Denies any shortness of breath. Chest pain. Coughing wheezing. Complains of mild abdominal distention and discomfort. Denies any nausea vomiting. General exam; elderly male, awake alert currently in no distress appears quite emaciated. Exam/Review of Systems Vital Signs Vitals Vital Signs Date Time Temp Pulse Resp B/P Pulse Ox O2 Delivery O2 Flow Rate FiO2 11/03/16 11:42 97.6 76 18 118/74 97 11/02/16 07:43 3.0 11/01/16 16:30 Room Air 11/01/16 01:24 32 Intake and Output 11/02/16 11/02/16 11/03/16 15:00 23:00 07:00 Intake Total 450 ml 900 ml 500 ml Balance 450 ml 900 ml 500 ml Exam HEENT examination; supple neck, no JVD. No lymphadenopathy. Midline trachea. No thyromegaly. Patient has fair dentition. Chest examination; diminished but clear vessel. S1-S2 audible, no murmurs. Regular rhythm. Abdomen examination; protuberant, with positive fluid thrill. Umbilicus is everted. Bowel sounds audible. Nontender. Extremity examination; no peripheral edema. ecchymoses are present in all 4 extremities. WEB SITE ADMIN examination; no focal deficit. Results Result Diagram: 11/02/16 0523 11/02/16 0523 Results 24 hrs Laboratory Tests Test 11/02/16 12:20 11/02/16 17:06 11/02/16 17:08 11/02/16 20:16 Bedside Glucose 384 H 398 H 345 H 230 H Test 11/03/16 02:25 11/03/16 08:00 11/03/16 11:54 Bedside Glucose 190 180 168 Medications Medications Current Medications Ondansetron HCl (Zofran Tab) 4 mg Q6H PRN PO NAUSEA AND/OR VOMITING; Start at 10:00 Tamsulosin HCl (Flomax) 0.4 mg HS PO Last administered on 11/02/16 20:27; Admin Dose 0.4 MG; Start 10/27/16 at 21:00 Miscellaneous Information 1 ea NOTE XX ; Start 10/27/16 at 13:30 Glucose (Glutose) 15 gm Q15M PRN PO DECREASED GLUCOSE; Start 10/27/16 at 13:30 Glucose (Glutose) 22.5 gm Q15M PRN PO DECREASED GLUCOSE; Start 10/27/16 at 13: 30 Dextrose (D50w Syringe) 25 ml Q15M PRN IV DECREASED GLUCOSE; Start 10/27/16 at 13:30 Dextrose (D50w Syringe) 50 ml Q15M PRN IV DECREASED GLUCOSE; Start 10/27/16 at 13:30 Glucagon (Glucagen) 1 mg Q15M PRN IM DECREASED GLUCOSE; Start 10/27/16 at 13:30 Glucose (Glutose) 15 gm Q15M PRN BUCCAL DECREASED GLUCOSE; Start 10/27/16 at 13 :30 Docusate Sodium (Colace Liquid Cup) 100 mg BID PO Last administered on 08:18; Admin Dose 100 MG; Start 10/31/16 at 21:00 Famotidine (Pepcid) 20 mg Q12 PO Last administered on 11/03/16 08:18; Admin Dose 20 MG; Start 10/31/16 at 21:00 Lactulose (Enulose) 20 gm QID PO Last administered on 11/03/16 12:02; Admin Dose 20 GM; Start 10/31/16 at 13:00 Midodrine (Proamatine) 10 mg TID@08,14,20 PO Last administered on 11/03/16 08: 21; Admin Dose 10 MG; Start 10/31/16 at 14:00 Rifaximin (Xifaxan) 550 mg BID PO Last administered on 11/03/16 08:17; Admin Dose 550 MG; Start 10/31/16 at 21:00 Spironolactone (Aldactone) 100 mg DAILY@06 PO Last administered on 11/03/16 06 :28; Admin Dose 100 MG; Start 11/01/16 at 08:30 Diagnostic Test (Pha) (Accu-Chek) 1 ea 02 XX ; Start 11/02/16 at 02:00 Insulin Glargine (Lantus) 7 unit BID@08,20 SC Last administered on 11/03/16 08 :06; Admin Dose 7 UNIT; Start 11/02/16 at 20:00 CHRISTEN STEWART Nov 03, 2016 12:13
[2016-11-03] MEDS ORDERED: RIFA550T4 PO (13:23)
[2016-11-03] MEDS ORDERED: NOVO3I SC (13:23)
[2016-11-03] MEDS ORDERED: Lactulose PO (13:23)
[2016-11-03] MEDS ORDERED: FURO40TA4 PO (13:23)
[2016-11-03] MEDS ORDERED: SPIR100T PO (13:23)
[2016-11-03] MEDS ORDERED: LANT3I SC (13:23)
--- NOTE | 2016-11-03 13:47 | PN ---
Date/Time of Note Date/Time of Note DATE: 11/03/16 TIME: 13:46 Assessment/Plan VTE Prophylaxis VTE Prophylaxis Intervention: SCD's Lines/Catheters IV Catheter Type [facility]from [facility]): Saline Lock Urinary Cath still in place: No Assessment/Plan Chief Complaint/Hosp Course Assessment and plan 1. Acute respiratory failure likely secondary to end-stage liver disease. Continue on diuretic therapy. Patient status post paracentesis on October 30, 2016 with reported 5.3 L removed. Improving at present. Continue on diuretic. Continue with new account interviewer recommendations. Tentative plan for repeat paracentesis today 2. End-stage liver disease with cirrhosis. Etiology unknown at this time. Patient is follow-up at [facility]. He is currently on liver transplant list. Patient to follow-up with [facility] as outpatient 3. Pancytopenia secondary to #2. H&H remained stable at this time. Will transfuse blood products as needed. Stable at present. 4. Reported pneumonia. Continue on antibiotic therapy. No respiratory distress at this time. Improving at present. 5. BPH. Patient be continued on his Flomax 6. Diabetes. Uncontrolled blood glucose at this time. Insulin will await for Will monitor for clinical improvement Disposition and plan: Plan for repeat paracentesis today. Anticipate discharge within the next 24 hours if remains stable Discussed plan of care with Problems: Subjective 24 Hr Interval Summary Free Text/Dictation No signs or symptoms of distress at this time Exam/Review of Systems Vital Signs Vitals Vital Signs Date Time Temp Pulse Resp B/P Pulse Ox O2 Delivery O2 Flow Rate FiO2 11/03/16 12:45 62 11/03/16 11:42 97.6 18 118/74 97 11/02/16 07:43 3.0 11/01/16 16:30 Room Air 11/01/16 01:24 32 Intake and Output 11/02/16 11/02/16 11/03/16 14:59 22:59 06:59 Intake Total 450 ml 900 ml 500 ml Balance 450 ml 900 ml 500 ml Exam Constitutional: alert, oriented Psych: nl mood/affect Head: normocephalic Neck: supple, No jvd Respiratory: diminished breath sounds Cardiovascular: regular rate and rhythm (At lung base) Gastrointestinal: other (Protuberant) Musculoskeletal: swelling (Minimal bilateral lower extreme) Neurological: SPOR[employer] MEDIA II-XII intact, nl mental status, nl speech Results Result Diagram: 6/19/17 0523 11/02/16 0523 Results 24 hrs Laboratory Tests Test 11/02/16 17:06 11/02/16 17:08 11/02/16 20:16 11/03/16 02:25 Bedside Glucose 398 H 345 H 230 H 190 Test 11/03/16 08:00 11/03/16 11:54 Bedside Glucose 180 168 Medications Medications Current Medications Ondansetron HCl (Zofran Tab) 4 mg Q6H PRN PO NAUSEA AND/OR VOMITING; Start at 10:00 Tamsulosin HCl (Flomax) 0.4 mg HS PO Last administered on 11/02/16 20:27; Admin Dose 0.4 MG; Start 10/27/16 at 21:00 Miscellaneous Information 1 ea NOTE XX ; Start 10/27/16 at 13:30 Glucose (Glutose) 15 gm Q15M PRN PO DECREASED GLUCOSE; Start 10/27/16 at 13:30 Glucose (Glutose) 22.5 gm Q15M PRN PO DECREASED GLUCOSE; Start 10/27/16 at 13: 30 Dextrose (D50w Syringe) 25 ml Q15M PRN IV DECREASED GLUCOSE; Start 10/27/16 at 13:30 Dextrose (D50w Syringe) 50 ml Q15M PRN IV DECREASED GLUCOSE; Start 10/27/16 at 13:30 Glucagon (Glucagen) 1 mg Q15M PRN IM DECREASED GLUCOSE; Start 10/27/16 at 13:30 Glucose (Glutose) 15 gm Q15M PRN BUCCAL DECREASED GLUCOSE; Start 10/27/16 at 13 :30 Docusate Sodium (Colace Liquid Cup) 100 mg BID PO Last administered on 08:18; Admin Dose 100 MG; Start 10/31/16 at 21:00 Famotidine (Pepcid) 20 mg Q12 PO Last administered on 11/03/16 08:18; Admin Dose 20 MG; Start 10/31/16 at 21:00 Lactulose (Enulose) 20 gm QID PO Last administered on 11/03/16 12:02; Admin Dose 20 GM; Start 10/31/16 at 13:00 Midodrine (Proamatine) 10 mg TID@08,14,20 PO Last administered on 11/03/16 08: 21; Admin Dose 10 MG; Start 10/31/16 at 14:00 Rifaximin (Xifaxan) 550 mg BID PO Last administered on 11/03/16 08:17; Admin Dose 550 MG; Start 10/31/16 at 21:00 Spironolactone (Aldactone) 100 mg DAILY@06 PO Last administered on 11/03/16 06 :28; Admin Dose 100 MG; Start 11/01/16 at 08:30 Diagnostic Test (Pha) (Accu-Chek) 1 ea 02 XX ; Start 11/02/16 at 02:00 Insulin Glargine (Lantus) 7 unit BID@08,20 SC Last administered on 11/03/16 08 :06; Admin Dose 7 UNIT; Start 11/02/16 at 20:00 ABBEY MIDDLETON Nov 03, 2016 13:47
[2016-11-03 16:13] LABS: ALBUMIN 3.1 g/dl (3.3-4.9); ALBUMIN/GLOBULIN RATIO 0.75; BILIRUBIN,INDIRECT 0.4 mg/dl (0-1.1); BILIRUBIN,TOTAL 0.4 mg/dl (0.2-1.3); CALCIUM 8.3 mg/dl (8.4-10.2); CREATININE 1.26 mg/dl (0.61-1.24); POTASSIUM 4.1 mmol/L (3.5-5.1); TOTAL PROTEIN 7.2 g/dl (6.1-8.1)
[2016-11-03] MEDS ORDERED: LIDOCAINE 1% (MPF) 5 ML VIAL ONE (17:34)
--- NOTE | 2016-11-03 18:15 | RADRPT ---
PROCEDURE: Ultrasound guided paracentesis. CLINICAL INDICATION: Ascites and shortness of breath. COMPARISON: 10/30/2016. TECHNIQUE: The risks, benefits, and alternatives were explained to the patient and/or the patient's family, inc luding but not limited to bleeding, infection, pain, visceral or vascular damage, shock, and . The patient and/or the patient's family understood the risks and the alternatives and wished to pro ceed with the procedure. Informed written consent was obtained. A procedural time out was performed . The patient's name, date of , and procedure to be performed were verified. Utilizing ultrasound guidance, optimal location for entry to the peritoneal cavity was ascertained. The overlying skin was prepped and draped in the usual sterile fashion. Approximately 10 ml of 1% Xylocaine was injected locally for pain control. Using ultrasound guidance, an 8 [place] catheter wa s introduced into the peritoneal cavity in the left lower quadrant without difficulty. FINDINGS: Initial images demonstrate ascites. Approximately 8.0 liters of serous fluid was aspirated and disc arded. The patient tolerated the procedure well without complication. IMPRESSION: 1. Successful ultrasound-guided paracentesis. RPTAT: QQ .Rd Lugo MD, Date Time Electronically viewed and signed by .Rd Lugo MD, on 11/03/2016 18:15 .R/
== END 2016-11-03 19:17 | disposition left against medical advice (07) | DRG 441 ==
LOC: E/R 07:05 → ICU 09:23 → TEL 10-31 14:59
PROVIDERS: ADMIT Internal Medicine; ATTEND Internal Medicine
PROC: 0BH17EZ Insertion of Endotracheal Airway into Trachea, Via Natural or Artificial Opening (ICD-10-PCS; principal; 2016-10-27)
PROC: 5A1945Z Respiratory Ventilation, 24-96 Consecutive Hours (ICD-10-PCS; 2016-10-27)
PROC: 4A133R1 Monitoring of Arterial Saturation, Peripheral, Percutaneous Approach (ICD-10-PCS; 2016-10-27)
PROC: 0W9G3ZZ Drainage of Peritoneal Cavity, Percutaneous Approach (ICD-10-PCS; 2016-10-30)
PROC: 0W9G3ZZ Drainage of Peritoneal Cavity, Percutaneous Approach (ICD-10-PCS; 2016-11-03)
DX: K72.00 Acute and subacute hepatic failure without coma (principal); J96.00 Acute respiratory failure, unspecified whether with hypoxia or hypercapnia; D61.818 Other pancytopenia; J18.9 Pneumonia, unspecified organism; Z76.82 Awaiting organ transplant status; E87.2 Acidosis; E87.1 Hypo-osmolality and hyponatremia; K70.31 Alcoholic cirrhosis of liver with ascites; K40.90 Unilateral inguinal hernia, without obstruction or gangrene, not specified as recurrent; I10 Essential (primary) hypertension; K42.9 Umbilical hernia without obstruction or gangrene; K40.20 Bilateral inguinal hernia, without obstruction or gangrene, not specified as recurrent; N43.3 Hydrocele, unspecified; N40.0 Benign prostatic hyperplasia without lower urinary tract symptoms; E11.9 Type 2 diabetes mellitus without complications; K21.9 Gastro-esophageal reflux disease without esophagitis; Z79.4 Long term (current) use of insulin
CPT/HCPCS: 36415; 36600; 70450; 71010; 71020; 74176; 80048; 80053; 80306; 82140; 82803; 82962; 83036; 83605; 83690; 83735; 84436; 84479; 84484; 85025; 85610; 85730; 87040; 87081; 92610; 93005; 94002; 94003; 94770; 96374; 96375; 97162; J0692; J1644; J1815; J3370; J7030; J7040